=== PATIENT | female | born 1960 | race Caucasian/White ===

== ENCOUNTER → 2018-05-14 07:54 | Outpatient (CLI) | payer BC, SELFPAY ==
--- NOTE | 2018-05-14 08:06 | CA_ITS ---
PROCEDURE: 2-D M-mode and color Doppler study INDICATIONS FOR THE TEST: Chest pain COPD Heart Murmur Tobacco Smoking Palpitations+ Fatigue Syncope Edema Hypertension Diabetes Mellitus Rheumatic Fever SOB+DEJESUS+Obesity Hyperlipidemia Family History HD+ Additional History mv regurg. PATIENT INFORMATION HEIGHT: 64 WEIGHT:120 GENDER: Female B/P:90/60 2-D/M-MODE INTERPRETATION: 2-D MEASUREMENTS OBSERVED VALUES IN CMS Right Ventricular Dimension (RVDd) 1.5 Interventricular Septum (Thickness)(IVsd) 0.6 Left Ventricular Internal Dimensions(LVIDd) 4.2 Left Ventricular Posterior Wall (Thickness)(LVPWd) 0.6 Aortic Root 2.1 Aortic Cusp Separation 1.3 Left Atrial Dimensions (LAD) 2.6 2D 1. Left atrium is normal size, left ventricle is normal size, there is no concentric left ventricular hypertrophy, visually estimated ejection fraction of 55% with no regional wall motion abnormality. 2. The right atrium and right ventricle are normal size and contractility. 3. The aortic valve is minimally thickened and fibrosed. 4. The mitral and tricuspid valve are grossly normal. 5. The pulmonic valve is poorly visualized. 6. No significant pericardial effusion noted. DOPPLER INTERROGATION: Doppler interrogation of the aortic, mitral and tricuspid valvular presence of mild mitral and tricuspid regurgitation, tricuspid regurgitation jet velocity is insufficient for calculation of the right ventricular systolic pressure, diastolic parameters are within normal range. CONCLUSION: 1. Normal left ventricular size, preserved left ventricular systolic function, visually estimated ejection fraction 55% with no regional wall motion abnormality, diastolic parameters are within normal range. 2. Mild mitral and tricuspid regurgitation 3. No significant pericardial effusion noted.
== END ==
PROVIDERS: PCP Family Medicine; Visit Provider Physician Assistant
DX: R60.0 Localized edema (principal); I34.0 Nonrheumatic mitral (valve) insufficiency
CPT/HCPCS: 93306

== ENCOUNTER → 2018-10-29 08:36 | Outpatient (CLI) | payer BC, SELFPAY ==
[2018-10-29 09:25] LABS: Basophils % 1.8 % (0.1-2.0); Eosinophils # 0.1 K/mm3 (0.0-0.4); Eosinophils % 3.2 % (0.1-12.0); Hematocrit 40.4 % (37.0-47.0); Hemoglobin 13.3 g/dL (12.2-16.2); Lymphocytes # 0.6 K/mm3 (0.7-4.5); Lymphocytes % 34.7 % (10-50); Mean Corpuscular HGB Conc 32.9 g/dL (31.8-35.4); Mean Corpuscular Hemoglobin 31.3 pg (27.0-31.2); Mean Corpuscular Volume 95.1 fl (81-99); Mean Platelet Volume 7.8 fl (7.4-10.4); Monocytes # 0.1 K/mm3 (0.1-1.0); Monocytes % 5.2 % (1.7-9.3); Platelet Count 200 K/mm3 (142-424); Red Blood Count 4.24 M/mm3 (4.20-5.40); Red Cell Distribution Width 12.8 % (11.5-17.5); White Blood Count 1.8 K/mm3 (4.8-10.8)
[2018-10-29 11:47] LABS: Alanine Aminotransferase 38 U/L (12-78); Albumin Level 4.5 gm/dL (3.4-5.0); Albumin/Globulin Ratio 1.3 (1.1-1.8); Alkaline Phosphatase 75 U/L (46-116); Anion Gap 14.2 mEq/L (5-15); Aspartate Amino Transferase 17 U/L (15-37); Bilirubin,Total 0.6 mg/dL (0.2-1.0); Blood Urea Nitrogen 16 mg/dL (7-18); Calcium 9.7 mg/dL (8.5-10.1); Carbon Dioxide 30 mmol/L (21.0-32.0); Chloride 103 mmol/L (98-107); Chol/HDL Ratio 2.3 (1-3.5); Cholesterol 173 mg/dL (140-200); Creatinine,Serum 0.91 mg/dL (0.55-1.02); Estimated Glomerular Filt Rate 63 ml/min (>60); GFR (African American) 77 ML/MIN (>60); Globulin 3.4 gm/dl (1.3-3.2); Glucose 83 mg/dL (74-106); HDL Cholesterol 74 mg/dL (29-89); LDL Cholesterol 89 mg/dL (0-130); Potassium 4.2 mmoL/L (3.5-5.1); Sodium 143 mmol/L (136-145); Total Protein,Serum 7.9 gm/dL (6.4-8.2); Triglycerides 51 mg/dL (30-200); VLDL Cholesterol 10 mg/dL (0-40)
[2018-10-30 08:27] LABS: Iron 101 ug/dL (27-159); UIBC 228 ug/dL (131-425)
[2018-11-01 10:10] LABS: Folate >20.0 ng/mL (>3.0); Iron Saturation 31 % (15-55); Vitamin B12 376 pg/mL (232-1245)
== END ==
PROVIDERS: Visit Provider Nurse Practitioner Family
DX: D64.9 Anemia, unspecified (principal); K59.00 Constipation, unspecified; Z13.220 Encounter for screening for lipoid disorders
CPT/HCPCS: 36415; 80053; 80061; 82607; 82746; 83540; 83550; 85025

== ENCOUNTER → 2019-06-23 09:22 | Outpatient (POV) | payer BC, SELFPAY | PROVIDERS: Visit Provider Dermatology | DX: Z00.00 Encounter for general adult medical examination without abnormal findings (principal) ==

== ENCOUNTER → 2020-04-21 15:42 | Outpatient (CLI) | payer BC, SELFPAY ==
--- NOTE | 2020-04-21 15:46 | XR_ITS ---
PROCEDURE: XR LUMBAR SPINE MIN 4V CLINICAL INDICATION: LOW BACK PAIN COMPARISON: CR CXR CHEST(2 VIEWS-NOT PORTABLE) from 11/21/2016 FINDINGS: There is mild degenerative disc disease at T12-L1 L1-L2 and L2-L3 as well as L4-5 and L5-S1. There is mild wedging of L1. This is age indeterminate. Schmorl's nodes are present at L2 and L3. Mild dextroscoliosis Other findings:None. IMPRESSION: Degenerative changes. Mild wedging of L1 age indeterminate. No obvious retropulsion. MRI may provide further evaluation to determine the age of this finding if clinically desired. Dictated by: Ranulfo Bonds MD 04/21/2020 17:09 Ranulfo Bonds MD in [place] 04/21/2020 17:09
== END ==
PROVIDERS: PCP Family Medicine; Visit Provider Physician Assistant
DX: M54.5 Low back pain (principal)
CPT/HCPCS: 72110

== ENCOUNTER → 2020-04-26 07:47 | Outpatient (CLI) | payer BC, SELFPAY ==
--- NOTE | 2020-04-26 07:54 | MR_ITS ---
PROCEDURE: MR LUMBAR SPINE WO CON CLINICAL INDICATION: BILATERAL LOW BACK PAIN Fall -1wk ago with continual lbp with lt hip pain. Prior x-ray 04-21-20 COMPARISON: CR XR LUMBAR SPINE MIN 4V from 04/21/2020 TECHNIQUE: Standard multiplanar multiecho sequences are performed without contrast. 3-D MIP and myelographic images are also rendered and reviewed FINDINGS: There is normal alignment. The spinal cord ends at the L1 level. There is mild wedge compression changes of the superior endplate of L1 with loss of height anteriorly of approximately 20-25 percent. This does show decreased T1 and increased T2 and STIR signal consistent with acute mild wedge compression changes. No retropulsion is evident. No posterior element involvement. There is straightening of the lumbar lordosis which may be due to muscle spasm. L1-L2: Mild discogenic changes with desiccation centrally and a small Schmorl's node along the superior endplate of L2. L2-L3: Mild endplate Schmorl's nodes. L3-L4: Mild facet and ligamentum hypertrophy. L4-5: Mild facet and ligamentum hypertrophy with mild bilateral lateral recess and foraminal narrowing. L5-S1: Mild degenerative disc disease with bulging disc and a small broad-based central disc protrusion along with facet and ligamentum hypertrophy with mild bilateral lateral recess and foraminal narrowing with canal stenosis at this level at 10 mm. Tarlov cyst is present at the S2-S3 level. IMPRESSION: 1. Mild acute wedge compression changes of L1 as described above without retropulsion. 2. Multilevel lumbar spondylosis. Please see above for detailed description at each level 3. L5-S1: Mild degenerative disc disease with bulging disc and a small broad-based central disc protrusion along with facet and ligamentum hypertrophy with mild bilateral lateral recess and foraminal narrowing with canal stenosis at this level at 10 mm. Dictated by: Ranulfo Bonds MD 04/28/2020 08:34 Ranulfo Bonds MD in [place] 04/28/2020 08:34
== END ==
PROVIDERS: PCP Family Medicine; Visit Provider Physician Assistant
DX: M54.5 Low back pain (principal)
CPT/HCPCS: 72148; 76376

== ENCOUNTER → 2020-05-05 10:32 | Outpatient (CLI) | payer BC, SELFPAY ==
--- NOTE | 2020-05-05 10:34 | XR_ITS ---
PROCEDURE: XR DEXA AXIAL SKELETON CLINICAL HISTORY: POSTMENOPAUSAL COMPARISON: No exams were available for comparison FINDINGS: The right hip BMD is 0.602 with a T-score of -2.2. The left hip BMD is 0.619 with a T-score of -2.1. The lumbar spine BMD is 0.872 with a T-score of -1.6. IMPRESSION: This patient is considered osteopenic according to the World Health Organization criteria. Bone density is between 10 and 25 percent below young normal. Fracture risk is moderate. Treatment is advised. Based on these results a follow-up exam is recommended in 2 year. Dictated by: Ranulfo Bonds MD 05/06/2020 06:17 Ranulfo Bonds MD in [place] 05/06/2020 06:17
== END ==
PROVIDERS: PCP Family Medicine; Visit Provider Physician Assistant
DX: Z78.0 Asymptomatic menopausal state (principal)
CPT/HCPCS: 77080

== ENCOUNTER → 2020-05-05 14:23 | Outpatient (POV) | payer BC, SELFPAY ==
[2020-05-05 14:56] VITALS: BP 112/44; PULSE 71; RESP 18; TEMP 36.1; O2SAT 98; BMI 19.5
--- NOTE | 2020-05-05 16:30 | HMH.PMCON ---
Assessment and Plan (1) Compression fracture Current visit: Yes Status: Acute Category: Medical (2) Low back pain Current visit: Yes Status: Acute Category: Medical Code(s): M54.5 - Low back pain - Assessment and plan all Dx Assessment and Plan for all problems:: Patient is not interested in any type of surgical intervention or injective therapy at this time. We will give the patient a brace for conservative use and she will continue use of [id number]-[id number] Tylenol at this time. Patient has been advised if her pain does continue and or if it does worsen she can follow-up in the clinic for possible interventional therapies. She is in agreement. She has been instructed to contact clinic if she has any concerns before next appointment. The patient and I specifically discussed risk factors for COVID19. These risks include, but are not limited to age greater than 60, heart or lung disease, diabetes, immunosuppression, and travel. We also discussed NSAIDs may worsen COVID19 infection or symptoms. Patient should not use NSAIDs to treat COVID19 signs or symptoms. Patient was also informed that any type of corticosteroid of any form (oral or injection) will decrease the patient's immune system response and may increase the likelihood of COVID19 infection and symptoms[address] Dr. Stewart has reviewed this note and agrees with this plan of care. This note was dictated using voice recognition software and make contain errors or omissions. HPI - Data of Consult Patient: new to practice Consult date: 05/05/20 Requesting Physician: Cathi Louise APRN Primary Care Provider: Dick Solares MD - Consult Narrative Reason for consult: Low back pain History of present illness: Ms. Bagley is a 60 year old female presents today for consultation for low back pain. Patient reports that she was recently getting out of bed and slipped on her pajama bottoms causing her to fall. Patient says she immediately developed severe low back pain. She did follow-up with her primary care provider who conservatively advised the patient to take [id number] medications. She was advised if her pain continued to contact the clinic. She did call them in regards to her continued pain and was, subsequently, referred to our clinic. Patient states her pain is primarily in her low back area. She did undergo imaging of her lumbar spine which does show a T1-T2 fracture. She is not interested in any type of surgical intervention. She did discuss possible kyphoplasty, however, she is not interested. She also says she is not interested in injective therapy at this time. She says she is not having a great deal of pain. She says that Tylenol has alleviated most of the pain. Most of her pain is when she is awakening in the early mornings. He rates her pain a 6 out of 10 today. Patient does not have a brace or any other devices at this time for the compression fracture. CC: Cathi Louise APRN [facility] History I have reviewed the patient's past medical history: Yes Medical History: Reports:: Anxiety, Cancer, Hypertension, Palpitations Denies:: Diabetes Mellitus Type 1, Diabetes Mellitus Type 2, MRSA *Have you ever received a pneumonia vaccine?: Yes *Have you received a flu vaccine this season?: Yes Other Medical History: Reports: Arthritis Other Surgeries: Yes: Hysterectomy-Total, Other (tonsillectomy, hysterectomy, breast surgery) Amputation: No Fractures: No - *Social History Smoking Status: Never smoker Alcohol Intake: never *Occupational Status:: other Housing: house Household Members: other *Travel in the last 8 weeks: None - Psychiatric History Pschychiatric History:: Reports:: Anxiety Family Hx:: Unable to obtain Review of Systems - Review of Systems review of Systems General: No recent weight changes, no fever, no sleep disturbances Respiratory: No cough, no shortness of air, no recurring pulmonary infections Cardiovascular
== END ==
PROVIDERS: PCP Family Medicine; Visit Provider Clinical Nurse Specialist Family Health
DX: M48.56XS Collapsed vertebra, not elsewhere classified, lumbar region, sequela of fracture (principal)
CPT/HCPCS: 99202

== ENCOUNTER 2020-11-07 09:35 | Emergency (ER) | payer OTHER, SELFPAY ==
[2020-11-07] VITALS (13 sets, daily range): BP systolic 114–143; BP diastolic 51–83; PULSE 71–103; RESP 10–20; TEMP 36.7–36.9; O2SAT 98–100
--- NOTE | 2020-11-07 10:04 | HMH.EDUTC ---
[facility] Disposition Clinical Impression: Near syncope Disposition: Still a Patient Condition on Discharge: Good Referrals: Dick Solares MD [Primary Care Provider] - As needed Time of Disposition: 10:16 Medical Decision Making - Jared Inquiry Pt receiving controlled substance: No Jared was queried for this patient: No Vital Signs: 11/07/20 09:40 Temperature 98.4 F Temperature Source Oral Pulse Rate [Right Brachial] 74 Respiratory Rate 19 Blood Pressure [Right Arm] 134/51 L Blood Pressure Mean [Right Arm] 78 Blood Pressure Source [Right Arm] Automatic Cuff Blood Pressure Position [Right Arm] Sitting 02 Sat by Pulse Oximetry 98 Oxygen Delivery Method Room Air Medical Decision Narrative: Discussed symptoms with patient and she reported near syncope when she got up to go to the bathroom and had to sit down to keep from hitting the floor State that she has been having numbness/tingling feeling in her left arm but had COVID vaccine in this arm last week and not sure it may be causing this and her left leg felt shaky States that she is not sure but she just dont feel right appeared concerned Denies numbness in face States that she feels like she needs to poop but knows if she does she will go out. States that she is wanting to have her heart and blood checked. Discussed with patient and due to symptoms recommended transfer to the ED for further evaluation and testing and patient agreed, called ED and spoke with [facility] and patient was moved to room 5 [facility] HPI - General Stated complaint: dizzy heart rate increase Time Seen by Provider: 11/07/20 10:04 Mode of Arrival: Ambulatory Source of Information: Patient Limitations: No Limitations Description of Symptoms (Recalled from Triage Doc. by RN): PATIENT C/O DIZZINESS, SHAKY, AND NOT FEELING MYSELF SINCE THIS MORNING. ALSO C/O NUMBNESS AND TINGLING IN LEFT ARM HEENT Symptoms (Recalled from RN notes): Yes Resp Symptoms (Recalled from RN notes): No Skin Symptoms (Recalled from RN notes): No MS Symptoms (Recalled from RN notes): No Functional Status (Recalled from RN notes): WNL - History of Present Illness Provider Complaint: Patient states that she woke up this morning and felt fine States that she started walking towards her bathroom and felt like she was going to pass out and had to sit down quickly or she would have hit the floor States that got her up and she walked around some and felt better but she was having some numbness and tingling in her left arm, hand and fingers but she had COVID vaccine last week and not sure if it may be from that and her left leg felt shaky States that she just doesnt feel right - Related Data Home Medications Medication Instructions Recorded Confirmed Aspirin [Aspir 81] 81 mg PO DAILY 06/01/18 06/01/18 Metoprolol Tartrate [Lopressor 12.5 mg PO BID 06/01/18 06/01/18 25mg tablet] Sertraline HCl 25 mg PO DAILY 06/01/18 06/01/18 Allergies Allergy/AdvReac Type Severity Reaction Status Date / Time codeine [CODEINE] Allergy Unknown Verified 06/01/18 17:54 Penicillins [PENICILLINS] Allergy Unknown Verified 06/01/18 17:54 - Worker's Comp Is this a Worker's Comp case?: No [facility] History - Hepatitis A Screen Drug use history?: No High risk sexual behaviors?: No History of sexually transmitted infection?: No Currently employed?: No Childcare worker?: No Do you have indoor plumbing?: Yes Do you have electricity?: Yes Attestation statement:: This patient has been screened for Hepatitis A risk factors. I have reviewed the patient's past medical history: Yes Medical History: Reports:: Anxiety, Cancer, Hypertension, Palpitations Denies:: Diabetes Mellitus Type 1, Diabetes Mellitus Type 2, MRSA Other Medical History: Reports: Arthritis Other Surgeries: Yes: Hysterectomy-Total, Other (tonsillectomy, hysterectomy, breast surgery) Amputation: No Fractures: No - Social History Smoking
--- NOTE | 2020-11-07 10:10 | ECG_ITS ---
APPROVED REPORT Exam: Resting ECG HR:81 bpm ECG Measurements Heart Rate 81 AXES QRSd 72 QRS 62 QT 384 T 59 QTc 446 Conclusion Undetermined rhythm Otherwise normal ECG Electronically signed by : Jose Antonio Haq, 11/08/2020 19:39:50
--- NOTE | 2020-11-07 10:31 | XR_ITS ---
PROCEDURE: XR CHEST PORTABLE CLINICAL HISTORY: dizziness COMPARISON: CR CXR CHEST(2 VIEWS-NOT PORTABLE) from 07/15/2014 CR CXR CHEST(2 VIEWS-NOT PORTABLE) from 11/21/2016 CR CXR1 CHEST-PORTABLE from 06/12/2017 FINDINGS: The cardiomediastinal silhouette and pulmonary vascularity are within normal limits. There are bilateral breast implants resulting in increased density in the mid lung zones on both sides. This could obscure an underlying infiltrate. Lung apices and lung bases are clear. No acute bony abnormalities. IMPRESSION: Artifact from bilateral breast implants otherwise negative Dictated by: Ranulfo Bonds MD 11/07/2020 11:53 Ranulfo Bonds MD in [place] 11/07/2020 11:53
--- NOTE | 2020-11-07 10:41 | HMH.EDDIZZ ---
ED Disposition Clinical Impression: Near syncope Disposition: Home, Self-Care Condition on Discharge: Good Referrals: Dick Solares MD [Primary Care Provider] - As needed Time of Disposition: 13:20 - Critical Care Critical Care Time: No Attestation: On 11/07/20, the high probability of a clinically significant, sudden or life threatening deterioration of the following system(s) required my full and direct attention, intervention and personal management. The time I documented below is in addition to time spent performing reported procedures but includes the following listed in this critical care notation. Medical Decision Making - Medical Records Medical records reviewed: Yes: I reviewed the patient's medical records. - Jared Inquiry Pt receiving controlled substance: No Vital Signs: 11/07/20 09:40 11/07/20 09:50 11/07/20 10:09 Temperature 98.4 F 98.1 F Temperature Source Oral Oral Pulse Rate Pulse Rate [Orthostatic Lying Right Brachial] 78 Pulse Rate [Orthostatic Sitting Right Brachial] 83 Pulse Rate [Orthostatic Standing Right Brachial] 84 Pulse Rate [Right Brachial] 74 81 Respiratory Rate 19 19 Blood Pressure Blood Pressure [Orthostatic Lying Right Arm] 131/72 Blood Pressure [Orthostatic Sitting Right Arm] 123/78 Blood Pressure [Orthostatic Standing Right Arm] 143/60 H Blood Pressure [Right Arm] 134/51 L 136/64 Blood Pressure Mean Blood Pressure Mean [Right Arm] 78 88 Blood Pressure Source [Right Arm] Automatic Cuff Automatic Cuff Blood Pressure Position [Right Arm] Sitting Sitting 02 Sat by Pulse Oximetry 98 100 Oxygen Delivery Method Room Air Room Air 11/07/20 10:11 11/07/20 10:15 11/07/20 10:28 Temperature Temperature Source Pulse Rate 103 H 83 74 Pulse Rate [Orthostatic Lying Right Brachial] Pulse Rate [Orthostatic Sitting Right Brachial] Pulse Rate [Orthostatic Standing Right Brachial] Pulse Rate [Right Brachial] 76 Respiratory Rate 16 14 14 Blood Pressure 114/65 Blood Pressure [Orthostatic Lying Right Arm] Blood Pressure [Orthostatic Sitting Right Arm] Blood Pressure [Orthostatic Standing Right Arm] Blood Pressure [Right Arm] 114/65 Blood Pressure Mean 82 Blood Pressure Mean [Right Arm] 81 Blood Pressure Source [Right Arm] Blood Pressure Position [Right Arm] 02 Sat by Pulse Oximetry 100 100 100 Oxygen Delivery Method 11/07/20 10:30 11/07/20 10:45 11/07/20 11:00 Temperature Temperature Source Pulse Rate 79 Pulse Rate [Orthostatic Lying Right Brachial] Pulse Rate [Orthostatic Sitting Right Brachial] Pulse Rate [Orthostatic Standing Right Brachial] Pulse Rate [Right Brachial] 72 Respiratory Rate 12 12 11 L Blood Pressure 126/68 134/64 Blood Pressure [Orthostatic Lying Right Arm] Blood Pressure [Orthostatic Sitting Right Arm] Blood Pressure [Orthostatic Standing Right Arm] Blood Pressure [Right Arm] 126/68 Blood Pressure Mean 84 94 Blood Pressure Mean [Right Arm] 87 Blood Pressure Source [Right Arm] Automatic Cuff Blood Pressure Position [Right Arm] Sitting 02 Sat by Pulse Oximetry 100 100 100 Oxygen Delivery Method Room Air 11/07/20 11:08 11/07/20 11:15 Temperature Temperature Source Pulse Rate Pulse Rate [Orthostatic Lying Right Brachial] Pulse Rate [Orthostatic Sitting Right Brachial] Pulse Rate [Orthostatic Standing Right Brachial] Pulse Rate [Right Brachial] 71 Respiratory Rate 20 10 L Blood Pressure Blood Pressure [Orthostatic Lying Right Arm] Blood Pressure [Orthostatic Sitting Right Arm] Blood Pressure [Orthostatic Standing Right Arm] Blood Pressure [Right Arm] 134/64 Blood Pressure Mean Blood Pressure Mean [Right Arm] 87 Blood Pressure Source [Right Arm] Blood Pressure Position [Right Arm] 02 Sat by Pulse Oximetry 100 100 Oxygen Delivery Method - Lab Data Lab results reviewed: Yes: I reviewed the patient's
[2020-11-07 10:43] LABS: Basophils % 0.9 % (0.1-2.0); Eosinophils % 1.3 % (0.1-12.0); Hematocrit 37.6 % (37.0-47.0); Hemoglobin 12.4 g/dL (12.2-16.2); Lymphocytes # 0.8 K/mm3 (0.7-4.5); Lymphocytes % 34.2 % (10-50); Mean Corpuscular Volume 93.7 fl (81-99); Mean Platelet Volume 7.9 fl (7.4-10.4); Monocytes # 0.2 K/mm3 (0.1-1.0); Monocytes % 6.5 % (1.7-9.3); Neutrophils # 1.4 K/mm3 (1.8-7.8); Neutrophils % 57.1 % (37.0-80.0); Platelet Count 189 K/mm3 (142-424); Red Blood Count 4.01 M/mm3 (4.20-5.40); Red Cell Distribution Width 12.8 % (11.5-17.5); White Blood Count 2.4 K/mm3 (4.8-10.8)
[2020-11-07 10:50] LABS: Chloride 103 mmol/L (98-107)
[2020-11-07 10:51] LABS: Potassium 3.8 mmoL/L (3.5-5.1); Sodium 139 mmol/L (136-145)
[2020-11-07 10:53] LABS: Alanine Aminotransferase 21 U/L (12-78); Aspartate Amino Transferase 26 U/L (14-36); Blood Urea Nitrogen 9 mg/dl (7-17); Creatinine Clearance Estimated 64 mL/min (50-200); Estimated Glomerular Filt Rate 73 ml/min (>60); GFR (African American) 89 ML/MIN (>60)
[2020-11-07 10:54] LABS: Albumin Level 4.7 g/dl (3.5-5.0); Albumin/Globulin Ratio 1.4 (1.1-1.8); Alkaline Phosphatase 82 U/L (38-126); Anion Gap 11.8 mEq/L (5-15); Bilirubin,Total 0.4 mg/dl (0.2-1.3); Calcium 9.8 mg/dl (8.4-10.2); Carbon Dioxide 28 mmol/L (22.0-30.0); Globulin 3.3 g/dL (1.3-3.2); Glucose 87 mg/dl (74-100)
[2020-11-07 11:13] LABS: Troponin I < 0.01 ng/ml (0.00-0.034)
--- NOTE | 2020-11-07 11:55 | CT_ITS ---
PROCEDURE: CT HEAD/BRAIN WO CON CLINICAL INDICATION: dizziness COMPARISON: No exams were available for comparison TECHNIQUE: Axial images obtained. All CT scans at the facility use one or more dose reduction, viz: automated exposure control, ma/kV adjustment per patient size (including targeted exams where dose is matched to indication, i.e. head), or iterative reconstruction technique. FINDINGS: No midline shift, mass effect, intracranial hemorrhage, hydrocephalus, or extra-axial fluid collection is evident. The calvarium has an unremarkable appearance. No mastoid effusion. No sinus air-fluid level. IMPRESSION: No acute intracranial finding Dictated by: Ranulfo Bonds MD 11/07/2020 13:01 Ranulfo Bonds MD in [place] 11/07/2020 13:01
== END 2020-11-07 13:28 | disposition home or self-care (01) ==
LOC: UTC 09:43 → ER 10:04
PROVIDERS: Emergency Provider Family Medicine; PCP Family Medicine
DX: R55 Syncope and collapse (principal); R20.2 Paresthesia of skin; F41.9 Anxiety disorder, unspecified; I10 Essential (primary) hypertension; Z79.899 Other long term (current) drug therapy; Z90.710 Acquired absence of both cervix and uterus
CPT/HCPCS: 70450; 71045; 80053; 84484; 85025; 93005; 99283

== ENCOUNTER → 2020-11-14 13:33 | Outpatient (CLI) | payer OTHER, SELFPAY ==
--- NOTE | 2020-11-14 | CA_ITS ---
APPROVED REPORT Shipper Receiver: MARYBETH Laterality: Bilateral Study Quality: Good Indications: Near syncopal episode with dizziness Risk Factors hx-smoking Doppler Spectral Velocity Analysis ECA (R) 68.10/12.00 cm/s ECA (L) 65.50/14.10 cm/s dICA (R) 85.40/28.30 cm/s dICA (L) 94.30/38.20 cm/s Robi (R) 82.80/32.70 cm/s Robi (L) 92.00/36.70 cm/s pICA (R) 52.70/16.70 cm/s pICA (L) 61.00/21.80 cm/s dCCA (R) 88.60/24.10 cm/s dCCA (L) 81.40/21.40 cm/s pCCA (R) 101.60/25.70 cm/s pCCA (L) 123.40/29.10 cm/s Vert (R) 52.70/0.00 cm/s Vert (L) 95.40/18.30 cm/s ICA/CCA 0.96 ICA/CCA 1.16 Findings Duplex evaluation demonstrates antegrade flow of the bilateral Vertebral Arteries. Duplex evaluation demonstrates stenosis of the right proximal internal carotid artery in the range of 20-49% with PSV <140 cm/sec, EDV <100 cm/sec, and IC/CC Ratio <4.0. Duplex evaluation demonstrates stenosis of the left proximal internal carotid artery in the range of 20-49% with PSV <140 cm/sec, EDV <100 cm/sec, and IC/CC Ratio <4.0. Spectral broadening is present bilaterally. Conclusion Duplex evaluation demonstrates antegrade flow of the bilateral Vertebral Arteries. Duplex evaluation demonstrates stenosis of the right proximal internal carotid artery in the range of 20-49% with PSV <140 cm/sec, EDV <100 cm/sec, and IC/CC Ratio <4.0. Duplex evaluation demonstrates stenosis of the left proximal internal carotid artery in the range of 20-49% with PSV <140 cm/sec, EDV <100 cm/sec, and IC/CC Ratio <4.0. Electronically signed by : Ranulfo Bonds MD 11/14/2020 15:57:43
== END ==
PROVIDERS: PCP Family Medicine; Visit Provider Nurse Practitioner Family
DX: R55 Syncope and collapse (principal)
CPT/HCPCS: 93880

== ENCOUNTER → 2021-02-08 15:46 | Outpatient (CLI) | payer OTHER, SELFPAY ==
--- NOTE | 2021-02-08 15:49 | XR_ITS ---
PROCEDURE: XR KNEE RT 3V CLINICAL INDICATION: KNEE PAIN COMPARISON: No exams were available for comparison FINDINGS: Three views show [id number] degenerative change of medial joint compartment and patellofemoral joint. Degenerative change of the lateral joint compartment. Tiny joint effusion. No acute fracture or dislocation. IMPRESSION: Mild tricompartment degenerative change of the right knee joint and tiny joint effusion. No acute fracture or dislocation. Dictated by: Khalif Baum MD 02/08/2021 16:24 Khalif Baum MD in [facility] 02/08/2021 16:24
--- NOTE | 2021-02-08 16:15 | ECG_ITS ---
APPROVED REPORT Exam: Resting ECG HR:73 bpm ECG Measurements Heart Rate 73 AXES MA 142 P 70 QRSd 80 QRS 72 QT 400 T 70 QTc 440 Conclusion Normal sinus rhythm Normal ECG Electronically signed by : Jose Antonio Haq, 02/08/2021 17:49:10
== END ==
PROVIDERS: PCP Nurse Practitioner Family; Visit Provider Nurse Practitioner Family
DX: M25.562 Pain in left knee (principal)
CPT/HCPCS: 73562; 93005

== ENCOUNTER → 2021-04-13 14:35 | Outpatient (CLI) | payer OTHER, SELFPAY | PROVIDERS: PCP Family Medicine; Visit Provider Physician Assistant | DX: Z20.822 Contact with and (suspected) exposure to COVID-19 (principal) | CPT/HCPCS: U0003 ==

== ENCOUNTER → 2021-05-11 11:44 | Outpatient (CLI) | payer OTHER, SELFPAY | PROVIDERS: PCP Family Medicine; Visit Provider Nurse Practitioner | DX: Z20.822 Contact with and (suspected) exposure to COVID-19 (principal); U07.1 COVID-19 | CPT/HCPCS: C9803; U0003; U0005 ==

== ENCOUNTER → 2021-06-23 10:16 | Outpatient (CLI) | payer OTHER, SELFPAY ==
--- NOTE | 2021-06-23 10:19 | US_ITS ---
PROCEDURE: US CHEST CLINICAL INDICATION: CHEST WALL PAIN Patient has history of bilateral breast implants and right breast cancer. Currently complains of left lateral chest wall pain. COMPARISON: CR XR CHEST 2V from 06/23/2021 FINDINGS: The region of pain indicated by the patient corresponds to a left lateral rib. IMPRESSION: Region of pain indicated by patient corresponds to a left lateral rib. Left rib series radiograph or CT chest without contrast is recommended to evaluate for left rib fracture or osseous metastasis. Dictated by: Grecia Brewer MD 06/23/2021 11:44 Grecia Brewer MD in [place] 06/23/2021 11:44
--- NOTE | 2021-06-23 10:23 | XR_ITS ---
PROCEDURE: XR CHEST 2V CLINICAL HISTORY: CHEST WALL PAIN, left-sided History of bilateral breast reconstruction COMPARISON: CR CXR CHEST(2 VIEWS-NOT PORTABLE) from 11/21/2016 CR CXR1 CHEST-PORTABLE from 06/12/2017 CR XR CHEST PORTABLE from 11/07/2020 FINDINGS: The cardiomediastinal silhouette and pulmonary vascularity are within normal limits. Moderate emphysematous changes are noted with hyperexpansion lung samayoa and flattening of the hemidiaphragms. There is no infiltrate and there is no pleural fluid. The soft tissues in the chest wall appear normal bilaterally. There is faint bilateral symmetrical homogeneous density of the breast shadows. IMPRESSION: Mild to moderate COPD, no acute chest pathology noted Dictated by: Dr. Humberto Washington MD 06/23/2021 10:58 Dr. Humberto Washington MD in [facility] 06/23/2021 10:58
== END ==
PROVIDERS: PCP Nurse Practitioner Family; Visit Provider Nurse Practitioner Family
DX: R07.89 Other chest pain (principal)
CPT/HCPCS: 71046; 76604

== ENCOUNTER → 2021-07-11 07:55 | Outpatient (CLI) | payer OTHER, SELFPAY ==
--- NOTE | 2021-07-11 08:00 | CT_ITS ---
PROCEDURE: CT CHEST WO CON CLINICAL INDICATION: CHEST WALL PAIN COMPARISON: CR XR LUMBAR SPINE MIN 4V from 04/21/2020 MR MR LUMBAR SPINE WO CON from 04/26/2020 CR XR CHEST 2V from 06/23/2021 TECHNIQUE: Axial images obtained with sagittal and coronal reformats. All CT scans at the facility use one or more dose reduction, viz: automated exposure control, ma/kV adjustment per patient size (including targeted exams where dose is matched to indication, i.e. head), or iterative reconstruction technique. FINDINGS: HEART AND MEDIASTINAL STRUCTURES: Unremarkable. LUNGS AND PLEURAL SPACES: Minimal scarring or atelectatic change in the right middle lobe inferiorly. There are several small fissural nodules along the left major fissure inferiorly benign-appearing. BONY STRUCTURES: There is mild wedge compression changes which appears chronic UPPER ABDOMEN: Unremarkable. ADDITIONAL FINDINGS: Status post bilateral subpectoral breast implants IMPRESSION: No acute finding Dictated by: Ranulfo Bonds MD 07/12/2021 16:36 Ranulfo Bonds MD in [facility] 07/12/2021 16:36
== END ==
PROVIDERS: PCP Nurse Practitioner Family; Visit Provider Nurse Practitioner Family
DX: R07.89 Other chest pain (principal)
CPT/HCPCS: 71250

== ENCOUNTER → 2021-08-23 09:42 | Outpatient (CLI) | payer OTHER, SELFPAY | PROVIDERS: Visit Provider Nurse Practitioner | DX: Z20.822 Contact with and (suspected) exposure to COVID-19 (principal) | CPT/HCPCS: C9803; U0003; U0005 ==

== ENCOUNTER → 2021-10-30 11:41 | Outpatient (CLI) | payer OTHER, SELFPAY ==
--- NOTE | 2021-10-30 11:50 | XR_ITS ---
FINAL REPORT CLINICAL HISTORY: SOB, chest pain COMPARISON: June 23, 2021 FINDINGS: Two views of the chest were obtained. The heart size and pulmonary vascularity are within normal limits. The mediastinum is normal. No acute pulmonary abnormality is identified. There is no pneumothorax. The bony thorax is intact. IMPRESSION: No active cardiopulmonary disease. Reviewed, Interpreted and Dictated by Skyler Del Valle III, MD Transcribed by Chetan Almaraz Authenticated by Skyler Del Valle III, MD on 10/30/2021 01:26:[address] [facility]
== END ==
PROVIDERS: PCP Nurse Practitioner Family; Visit Provider Nurse Practitioner Family
DX: R06.02 Shortness of breath (principal); R07.9 Chest pain, unspecified
CPT/HCPCS: 71046

== ENCOUNTER → 2021-10-31 09:58 | Outpatient (CLI) | payer OTHER, SELFPAY ==
--- NOTE | 2021-10-31 | ECG_ITS ---
APPROVED REPORT Exam: Resting ECG HR:59 bpm ECG Measurements Heart Rate 59 AXES WV 156 P 76 QRSd 78 QRS 53 QT 410 T 68 QTc 409 Conclusion SINUS BRADYCARDIA BORDERLINE ECG UNCONFIRMED REPORT Electronically signed by : Jose Antonio Haq MD 11/01/2021 17:51:03
[2021-10-31 10:24] LABS: Basophils # 0.1 K/mm3 (0-0.2); Basophils % 3.6 % (0.1-2.0); Eosinophils # 0.1 K/mm3 (0.0-0.4); Eosinophils % 2.7 % (0.1-12.0); Hematocrit 43.5 % (37.0-47.0); Hemoglobin 13.7 g/dL (12.2-16.2); Lymphocytes # 0.7 K/mm3 (0.7-4.5); Mean Corpuscular HGB Conc 31.4 g/dL (31.8-35.4); Mean Corpuscular Hemoglobin 31.4 pg (27.0-31.2); Mean Corpuscular Volume 99.8 fl (81-99); Mean Platelet Volume 8.3 fl (7.4-10.4); Monocytes # 0.2 K/mm3 (0.1-1.0); Monocytes % 7.4 % (1.7-9.3); Neutrophils # 1.3 K/mm3 (1.8-7.8); Neutrophils % 57.4 % (37.0-80.0); Platelet Count 227 K/mm3 (142-424); Red Blood Count 4.36 M/mm3 (4.20-5.40); Red Cell Distribution Width 13.5 % (11.5-17.5); White Blood Count 2.3 K/mm3 (4.8-10.8)
[2021-10-31 11:11] LABS: Alanine Aminotransferase 16 U/L (12-78); Albumin Level 4.8 g/dl (3.5-5.0); Albumin/Globulin Ratio 1.7 (1.1-1.8); Alkaline Phosphatase 84 U/L (38-126); Anion Gap 11.6 mEq/L (5-15); Aspartate Amino Transferase 23 U/L (14-36); Bilirubin,Total 0.6 mg/dl (0.2-1.3); Blood Urea Nitrogen 13 mg/dl (7-17); Calcium 9.7 mg/dl (8.4-10.2); Carbon Dioxide 31 mmol/L (22.0-30.0); Chloride 101 mmol/L (98-107); Creatine Kinase 38 U/L (30-135); Estimated Glomerular Filt Rate 85 ml/min (>60); GFR (African American) 103 ML/MIN (>60); Globulin 2.8 g/dL (1.3-3.2); Glucose 85 mg/dl (74-100); Potassium 4.6 mmoL/L (3.5-5.1); Sodium 139 mmol/L (136-145); Total Protein,Serum 7.6 g/dl (6.3-8.2)
[2021-10-31 11:22] LABS: CKMB Relative Index 1.1 U/L (0-4.0); Creatine Kinase MB 0.4 ng/ml (0.0-2.03)
[2021-10-31 11:23] LABS: Troponin I < 0.01 ng/ml (0.00-0.034)
[2021-10-31 11:25] LABS: Free T4 (Free Thyroxine) 0.97 ng/dl (0.78-2.19)
[2021-10-31 11:40] LABS: Thyroid Stimulating Hormone 4.86 uIU/mL (0.465-4.68)
== END ==
PROVIDERS: PCP Family Medicine; Visit Provider Nurse Practitioner Family
DX: R06.02 Shortness of breath (principal); R07.9 Chest pain, unspecified
CPT/HCPCS: 36415; 80053; 82550; 82553; 84439; 84443; 84484; 85025; 93005

== ENCOUNTER → 2021-11-06 08:43 | Outpatient (CLI) | payer OTHER, SELFPAY ==
--- NOTE | 2021-11-06 08:48 | XR_ITS ---
FINAL REPORT TECHNIQUE: Bone densitometry calculations of the lumbar spine and left hip were obtained. CLINICAL HISTORY: . post menopausal screening FINDINGS: Using L1-4, the bone mineral density of the spine is 0.864 g/cm2, corresponding to T-score of -1.7. Using the right hip, the bone mineral density of the femoral neck is 0.571 g/cm2, corresponding to a T-score of -2.5. IMPRESSION: Osteoporosis: Lowest T-score is at or below -2.5. This patient's T-score meets the World Health Organization criteria for osteoporosis. Reviewed, Interpreted and Dictated by Skyler Del Valle III, MD Transcribed by Herminia Lovett Authenticated by Skyler Del Valle III, MD on 11/06/2021 11:25:16 AM [facility]
--- NOTE | 2021-11-06 09:31 | CA_ITS ---
APPROVED REPORT EXAM: Comprehensive 2D, Doppler, and color-flow Echocardiogram Alley Cleaner: Katia Aldridge RVT Ht: 5 ft 5 in Wt: 120lbs BSA: 1.59 BP: 100/67 mmHg Indications: SOA,PALPS,BREAST IMPLANTS S/P JUNIOR MASECTOMY 2D Dimensions LVOT 2.25 cm (M/F) 1.5-2.5 LA Volume 16.60 mL LA Volume Index 10.44 mL/m2 (M/F) 16-34 M-Mode Dimensions RVDd 2.03 cm (0.9-2.6) LA Diam 2.84 cm (1.9-4.0) LVDd 3.40 cm (3.5-5.7) Ao Diam 2.29 cm (2.0-3.7) LVDs 2.31 cm (3.5-5.7) IVSd 0.87 cm (0.6-1.1) PWd 0.81 cm (0.6-1.1) EF (Teich) 61.40% FS 32.10% EDV (Teich) 47.40 mL TAPSE 2.87 (<1.7) ESV (Teich) 18.30 mL LV Diastology E Decel Time 217.00 (160-240 msec) E/A Ratio 1.2 MED E' 9.60 (< 7 cm/sec) E'/MED E' Ratio 7.82 (>14) LAT E' 11.40 (<10 cm/sec) E/LAT E' Ratio 6.59 (>14) Aortic Valve AO Peak GR. 4.70 mmHg Mitral Valve MV E Max Bulmaro. 75.00 (40-130 cm/s) MV A Velocity 61.00 (40-130 cm/s) E/A Ratio 1.23 MV Decel. Time 217.00 (160-240 ms) MV PHT 63.00 ms Pulmonary Valve PV Peak Velocity 56.00 (50-150 cm/s) Tricuspid Valve TR P. Velocity 230.00 cm/s RAP Estimate 10.00 mmHg RVSP 31.20 mmHg Left Ventricle Left atrium is normal size, left ventricle is normal size, there is no concentric left ventricular hypertrophy, visually estimated ejection fraction 55% with no obvious regional wall motion abnormality, diastolic parameters are within normal range. Right Ventricle Right atrium and right ventricle are normal size and contractility. Aortic Valve Is minimally thickened and fibrosed, there is no aortic stenosis or aortic insufficiency. Mitral Valve Mitral valve leaflets are minimally thickened, there is mild mitral regurgitation. Tricuspid Valve Tricuspid grossly normal, there is mild tricuspid regurgitation, tricuspid regurgitation jet velocity is inadequate for calculation of the right ventricular systolic pressure. Pulmonic Valve Pulmonic valve is poorly visualized. Great Vessels Aortic root is normal size. Inferior vena cava is normal size with normal inspiratory collapse. Pericardium No significant pericardial effusion. Conclusion 1. Normal left ventricular size, preserved left ventricular systolic function visually estimated ejection fraction 55% with no regional wall motion abnormality, diastolic parameters are within normal range. 2. Mild mitral and tricuspid regurgitation. 3. No significant pericardial effusion- 4. Inferior vena cava normal size with normal inspiratory collapse. Electronically signed by : Alejo Jimenes MD 11/06/2021 19:45:21
== END ==
PROVIDERS: PCP Family Medicine; Visit Provider Nurse Practitioner Family
DX: Z13.820 Encounter for screening for osteoporosis (principal); Z78.0 Asymptomatic menopausal state; R06.02 Shortness of breath
CPT/HCPCS: 77080; 93306

== ENCOUNTER 2021-12-30 07:21 | Emergency (ER) | payer OTHER, SELFPAY ==
--- NOTE | 2021-12-30 07:21 | PC.NURSE ---
pt laying on bed, nurse is bedside, EKG performed, vital signs obtained and hooked up to cardiac monitoring.
--- NOTE | 2021-12-30 07:21 | ECG_ITS ---
APPROVED REPORT Exam: Resting ECG HR:69 bpm ECG Measurements Heart Rate 69 AXES NM 157 P 81 QRSd 77 QRS 60 QT 373 T 71 QTc 393 Conclusion SINUS RHYTHM NORMAL ECG UNCONFIRMED REPORT Electronically signed by : Jose Antonio Haq MD 12/31/2021 08:22:23
[2021-12-30 07:26] VITALS: BP 128/73; PULSE 69; RESP 18; TEMP 36.7; O2SAT 98
--- NOTE | 2021-12-30 07:38 | XR_ITS ---
PROCEDURE INFORMATION: Exam: XR Chest Exam date and time: 12/30/2021 7:41 AM Age: 61 years old Clinical indication: Pain; Angina pectoris; Additional info: Chest pain/ non smoker TECHNIQUE: Imaging protocol: XR of the chest. Views: 2 views. COMPARISON: CR XR CHEST 2V 10/30/2021 12:16 PM FINDINGS: Lungs: Mild hyperinflation. No focal consolidation. Pleural spaces: Unremarkable. No pleural effusion. No pneumothorax. Heart/Mediastinum: Unremarkable. No cardiomegaly. Bones/joints: Stable mild anterior wedging of a vertebral body near the thoracolumbar junction. IMPRESSION: No acute process.
--- NOTE | 2021-12-30 07:40 | PC.NURSE ---
Notified rad of CXR
--- NOTE | 2021-12-30 07:47 | PC.NURSE ---
pt to radiology
[2021-12-30 07:48] LABS: Basophils # 0.1 K/mm3 (0-0.2); Basophils % 2.1 % (0.1-2.0); Eosinophils # 0.1 K/mm3 (0.0-0.4); Eosinophils % 2.7 % (0.1-12.0); Hematocrit 41.4 % (37.0-47.0); Hemoglobin 13.7 g/dL (12.2-16.2); Lymphocytes % 43.5 % (10-50); Mean Corpuscular HGB Conc 33.1 g/dL (31.8-35.4); Mean Corpuscular Hemoglobin 31.7 pg (27.0-31.2); Mean Corpuscular Volume 95.8 fl (81-99); Mean Platelet Volume 8.7 fl (7.4-10.4); Monocytes # 0.1 K/mm3 (0.1-1.0); Monocytes % 6.3 % (1.7-9.3); Neutrophils % 45.4 % (37.0-80.0); Platelet Count 226 K/mm3 (142-424); Red Blood Count 4.32 M/mm3 (4.20-5.40); Red Cell Distribution Width 13.2 % (11.5-17.5); White Blood Count 2.2 K/mm3 (4.8-10.8)
[2021-12-30 07:54] LABS: Anion Gap 11.5 mEq/L (5-15); Blood Urea Nitrogen 15 mg/dl (7-17); Calcium 9.9 mg/dl (8.4-10.2); Carbon Dioxide 30 mmol/L (22.0-30.0); Chloride 101 mmol/L (98-107); Creatinine Clearance Estimated 51 mL/min (50-200); Estimated Glomerular Filt Rate 64 ml/min (>60); GFR (African American) 77 ML/MIN (>60); Glucose 88 mg/dl (74-100); Potassium 3.5 mmoL/L (3.5-5.1); Sodium 139 mmol/L (136-145)
--- NOTE | 2021-12-30 07:54 | PC.WOUNDNOTE ---
pt is back from radiology, hooked back up to vital signs and cardiac monitoring. Call light is within reach.
--- NOTE | 2021-12-30 07:58 | HMH.EDCP ---
ED Disposition Clinical Impression: Acute gastritis Qualifiers: Gastritis type: unspecified gastritis Gastritis bleeding: without bleeding Qualified Code(s): K29.00 - Acute gastritis without bleeding Chest pain Qualifiers: Chest pain type: unspecified Qualified Code(s): R07.9 - Chest pain, unspecified Disposition: Home, Self-Care Condition on Discharge: Fair Instructions: DI for Atypical Chest Pain Additional Instructions: Please return to the emergency department immediately if you feel worse in any way. I strongly suggest that you follow-up with your primary care physician in the next few days. Work-up today in the emergency department not reveal any evidence for life-threatening or dangerous causes for your discomfort. Referrals: Provider,Referral, [Primary Care Provider] - - Critical Care Critical Care Time: No Attestation: On , the high probability of a clinically significant, sudden or life threatening deterioration of the following system(s) required my full and direct attention, intervention and personal management. The time I documented below is in addition to time spent performing reported procedures but includes the following listed in this critical care notation. Medical Decision Making - Medical Records Medical records reviewed: Yes: I reviewed the patient's medical records. - Jared Inquiry Pt receiving controlled substance: No Vital Signs: 12/30/21 07:26 12/30/21 08:00 Temperature 98.1 F Temperature Source Oral Pulse Rate 63 Pulse Rate [Right Radial] 69 Respiratory Rate 18 Blood Pressure 130/62 Blood Pressure [Right Arm] 128/73 Blood Pressure Mean [Right Arm] 91 Blood Pressure Source [Right Arm] Automatic Cuff Blood Pressure Position [Right Arm] Sitting 02 Sat by Pulse Oximetry 98 100 Oxygen Delivery Method Room Air Room Air - Lab Data Lab Results 12/30/21 07:30: WBC 2.2 L, RBC 4.32, Hgb 13.7, Hct 41.4, MCV 95.8, MCH 31.7 H, MCHC 33.1, RDW 13.2, Plt Count 226, MPV 8.7, Neut % (Auto) 45.4, Lymph % (Auto) 43.5, Kidder % (Auto) 6.3, Eos % (Auto) 2.7, Baso % (Auto) 2.1 H, Neut # (Auto) 1.0 L, Lymph # (Auto) 1.0, Kidder # (Auto) 0.1, Eos # (Auto) 0.1, Baso # (Auto) 0.1 12/30/21 07:30: Sodium 139, Potassium 3.5, Chloride 101, Carbon Dioxide 30, Anion Gap 11.5, BUN 15, Creatinine 0.90, Estimated Creat Clear 51, Estimated GFR 64, Est GFR ( Amer) 77, Glucose 88, Calcium 9.9, Troponin I < 0.01 Result diagrams: 12/30/21 07:30 12/30/21 07:30 Orders (Tests/Meds): ED MEDICATIONS Generic Name Dose Route Start Last Admin Trade Name Freq PRN Reason Stop Dose Admin Sodium Chloride 10 ml 12/30/21 07:38 Sodium Chloride 0.9% 10ml Flush Syringe IV 01/29/22 07:37 NEEDED PRN Maintain IV Site Discontinued Medications Generic Name Dose Route Start Last Admin Trade Name Freq PRN Reason Stop Dose Admin Aspirin 243 mg 12/30/21 07:38 12/30/21 07:41 Aspirin 81mg Chewable Tablet PO 12/30/21 07:39 243 mg ONCE ONE Administration Belladonna Alkaloids 60 ml 12/30/21 08:16 12/30/21 08:34 Gi Cocktail 60ml Udc PO 12/30/21 08:17 60 ml ONCE ONE Administration ORDERS Category Date Time Status Troponin I Q3H Lab 12/30/21 10:45 Ordered Troponin I Q3H Lab 12/30/21 13:45 Ordered - Radiology Data #1 Image(s): Chest Image Reviewed: Yes I reviewed the patient's radiology results, Yes I reviewed the patient's radiology image, Yes I have reviewed radiologist's interpretation Preliminary Findings: Normal/NAD - ECG Data Tracing #1 I reviewed this ECG and interpreted as documented below: The patient is EKG was done at 7:22 AM. It shows a normal sinus rhythm with a ventricular rate of 69 bpm. There are no ischemic changes. There is no peaked T waves. The rhythm is normal. There is no acute disease. Normal Sinus Rhythm: Yes - GABBY Score for Non-Stemi Age of Patient: 60-69 years old Heart Rate: 50-69 bpm Systolic Blood Pre
[2021-12-30 08:00] VITALS: BP 130/62; PULSE 63; O2SAT 100
--- NOTE | 2021-12-30 08:00 | PC.NURSE ---
Dr. Leavitt bedside with patient at this time.
[2021-12-30 08:14] LABS: Troponin I < 0.01 ng/ml (0.00-0.034)
[2021-12-30 09:08] VITALS: BP 105/56; PULSE 57; RESP 16; TEMP 36.7; O2SAT 99
== END 2021-12-30 09:17 | disposition home or self-care (01) ==
PROVIDERS: Emergency Provider Emergency Medicine
DX: K29.00 Acute gastritis without bleeding (principal); R07.9 Chest pain, unspecified; F41.9 Anxiety disorder, unspecified; I10 Essential (primary) hypertension; R00.2 Palpitations; M19.90 Unspecified osteoarthritis, unspecified site; Z88.0 Allergy status to penicillin; Z88.6 Allergy status to analgesic agent
CPT/HCPCS: 71046; 80048; 84484; 85025; 93005; 99284

== ENCOUNTER → 2023-02-25 15:01 | Outpatient (CLI) | payer OTHER, SELFPAY ==
--- NOTE | 2023-02-25 15:09 | XR_ITS ---
FINAL REPORT CLINICAL HISTORY: LT THUMB PAIN FINDINGS: Three views left thumb: Three views of the left thumb fail to reveal any evidence of fracture or dislocation. No soft tissue swelling is identified. No radiopaque foreign bodies are seen. IMPRESSION: Unremarkable left thumb. Reviewed, Interpreted and Dictated by Skyler Del Valle III, MD Transcribed by Maisha Rangel Authenticated and [facility]
== END ==
PROVIDERS: PCP Family Medicine; Visit Provider Family Medicine
DX: M79.645 Pain in left finger(s) (principal)
CPT/HCPCS: 73140

== ENCOUNTER 2023-04-07 19:38 | Emergency (ER) | payer OTHER, SELFPAY ==
[2023-04-07 19:39] VITALS: BP 159/91; PULSE 78; RESP 18; TEMP 36.8; O2SAT 99; BMI 19.4
--- NOTE | 2023-04-07 20:01 | HMH.EDGENADL ---
Discharge Plan Disposition Patient Disposition: Home, Self-Care Condition: Good Prescriptions Prescriptions: No Action aspirin [Aspir-81] 81 MG tablet,delayed release (DR/EC) 81 mg PO DAILY sertraline 25 MG tablet 25 mg PO DAILY metoprolol tartrate 25 MG tablet 12.5 mg PO BID Referrals Follow up/Referrals: Dick Solares MD [Primary Care Provider] - See instructions Clinical Impressions Clinical Impression: Cramp in muscle, Varicose veins of both legs with edema Discharge ED Provider: Vick Vital Adult HPI General Chief complaint: PAIN Stated complaint: Right Leg Pain Time Seen by Provider: 04/07/23 20:01 Mode of Arrival: Ambulatory Source of Information: Patient Limitations: No Limitations Description of Symptoms (Recalled from ER Triage Doc. by RN): Pt presents with pain in her right lower leg near a varicose vein which she has hx of surgery on 12 yrs ago. States she keeps getting sharp pains in her leg that are becoming more frequent and concerned for blood clot. No warmth or redness in area, good pedal pulses. History of Present Illness HPI narrative: Patient presents for evaluation of intermittent cramping pain over lateral aspect of right leg, acute in onset starting today, has not had similar symptoms before, no previous therapies, pain is sharp and nonradiating. Sometimes located over known varicose veins of superficial veins of anterior aspect of right leg, sometimes more laterally over musculature of right leg. No associated chest pain or shortness of breath or palpitations or personal or family history of DVT or PE. No recent travel, no estrogen usage. Patient usually wears compression stockings but has not recently with hot weather. Related Data Home Medications Medication Instructions Recorded Confirmed aspirin 81 mg tablet,delayed 81 mg PO DAILY HEART HEALTH 06/01/18 04/07/23 release (Aspir-) metoprolol tartrate 25 mg tablet 12.5 mg PO BID PALPITATIONS 06/01/18 04/07/23 sertraline 25 mg tablet 25 mg PO DAILY Depression 06/01/18 04/07/23 Allergies Allergy/AdvReac Type Severity Reaction Status Date / Time codeine [CODEINE] Allergy Unknown Verified 06/01/18 17:54 Penicillins [PENICILLINS] Allergy Unknown Verified 06/01/18 17:54 [facility] Disclaimer: The information contained in this section may have been updated after the patient was seen, as this information can be updated by other users. Social History Smoking Status: Never smoker alcohol intake: never current occupational status: other Travel in the last 8 weeks: None household members: other housing: house current occupational exposures/hazards: No ROS Obtained: Yes Systems reviewed as appropriate & no additional complaints except as documented Physical Exam General General appearance: alert and in no apparent distress Head Head exam: atraumatic and normocephalic Eye Eye exam: Present normal appearance Neck Neck exam: Present normal inspection Chest Chest inspection: Present normal inspection and symmetric chest wall rise Respiratory Respiratory exam: Present normal lung sounds bilaterally; Absent respiratory distress Cardiovascular Cardiovascular exam: Present regular rate and normal rhythm Abdominal Exam Abdominal exam: Present soft Extremities Exam Extremities exam: Present other (Tenderness to palpation over lateral aspect of right leg, no unilateral leg pain or leg swelling, varicose veins which are compressible, no overlying skin changes or erythema or edema) Neurological Exam Neurological exam: Present alert and oriented X3 Psychiatric Psychiatric exam: Present normal affect and normal mood Skin Skin exam: Present warm and dry Medical Decision Making Medical Records Medical records reviewed: Yes I reviewed the patient's medical records. Jared Inquiry Pt receiving controlled substance: No Vital Signs: 04/07/23 19:39 04/07/23 21:17 [place]
[2023-04-07 21:17] VITALS: BP 159/91; PULSE 89; RESP 19; TEMP 36.7; O2SAT 99
--- NOTE | 2023-04-07 21:20 | PC.NURSE ---
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 spoke with Dr. Vital whom said he would follow point of care.
== END 2023-04-07 21:19 | disposition home or self-care (01) ==
PROVIDERS: Emergency Provider Emergency Medicine; PCP Family Medicine
DX: I83.813 Varicose veins of bilateral lower extremities with pain (principal)
CPT/HCPCS: 99284

== ENCOUNTER → 2023-04-08 12:36 | Outpatient (CLI) | payer OTHER, SELFPAY ==
--- NOTE | 2023-04-08 12:42 | CA_ITS ---
FINAL REPORT TECHNIQUE: Multiple transverse and longitudinal images were performed of the right femoral-popliteal deep venous system with augmentation and compression maneuvers. CLINICAL HISTORY: Right lower extremity varicose vein cluster, pain and edema COMPARISON: None FINDINGS: Right lower extremity duplex ultrasound demonstrates normal flow in the deep venous system. There is no abnormal echogenicity to suggest thrombus. There is normal compression and augmentation. IMPRESSION: No evidence of right DVT. Reviewed, Interpreted and Dictated by Skyler Del Valle III, MD Transcribed by Lisandra Akdins Authenticated and [facility]
== END ==
PROVIDERS: PCP Nurse Practitioner Family; Visit Provider Nurse Practitioner Family
DX: M79.604 Pain in right leg (principal)
CPT/HCPCS: 93971

== ENCOUNTER 2023-04-15 08:10 | Emergency (ER) | payer OTHER, SELFPAY ==
[2023-04-15 08:11] VITALS: BP 89/36; PULSE 66; RESP 18; TEMP 36.7; O2SAT 100; BMI 19.4
--- NOTE | 2023-04-15 08:13 | XR_ITS ---
FINAL REPORT CLINICAL HISTORY: Left elbow pain COMPARISON: None FINDINGS: LEFT ELBOW 3 views were obtained. There is no acute fracture or dislocation. There is no joint effusion. The joint spaces are intact. There is mild soft tissue swelling posterior to the olecranon. IMPRESSION: Soft tissue swelling without acute process. Reviewed, Interpreted and Dictated by Seun Payne MD Transcribed by Lisandra Adkins Authenticated and [facility]
--- NOTE | 2023-04-15 08:13 | XR_ITS ---
FINAL REPORT CLINICAL HISTORY: Left forearm pain COMPARISON: None FINDINGS: 2 views of the left forearm were obtained. There is no acute fracture or dislocation. The joints are intact. There are no soft tissue abnormalities. IMPRESSION: No acute process. Reviewed, Interpreted and Dictated by Seun Payne MD Transcribed by Lisandra Adkins Authenticated and . [facility]
--- NOTE | 2023-04-15 08:16 | EXP.UTC ---
Discharge Plan Disposition Patient Disposition: Home, Self-Care Condition: Good Prescriptions Prescriptions: No Action aspirin [Aspir-81] 81 MG tablet,delayed release (DR/EC) 81 mg PO DAILY sertraline 25 MG tablet 25 mg PO DAILY metoprolol tartrate 25 MG tablet 12.5 mg PO BID Referrals Follow up/Referrals: Aquilino Rosario DO [Staff Physician] - See instructions Precious Lopez APRN [Primary Care Provider] - See instructions Activity Restrictions/Add. Instructions Additional Instructions/Restrictions: Rest the extremity, apply ice for 15 minutes as tolerated three or four times per day, Wear the carol ann wrap for compression, Elevate the extremity as tolerated while you are resting. Take ibuprofen for pain if you can take this. If not, then take tylenol. Follow up with Dr. Rosario (orthopedics). I put in a referral but you need to call his office and schedule an appointment. Follow up with your regular doctor. GO TO THE ER FOR ANY WORSENING SYMPTOMS Clinical Impressions Clinical Impression: Contusion of elbow, left, Contusion of forearm, left Instructions Patient Instructions: Contusion, DI for Contusion, How to Apply an Elastic Wrap on Elbow Discharge ED Provider: Khalif Orr [facility] General Stated complaint: [id number] left arm injury, home Time Seen by Provider: 04/15/23 08:16 History of Present Illness Provider Complaint: She states that she fell this morning and came down on her left arm. Since then she has had left elbow and forearm pain. She denies any other injury. Related Data Home Medications Medication Instructions Recorded Confirmed aspirin 81 mg tablet,delayed 81 mg PO DAILY HEART HEALTH 06/01/18 04/07/23 release (Aspir-) metoprolol tartrate 25 mg tablet 12.5 mg PO BID PALPITATIONS 06/01/18 04/07/23 sertraline 25 mg tablet 25 mg PO DAILY Depression 06/01/18 04/07/23 Allergies Allergy/AdvReac Type Severity Reaction Status Date / Time codeine [CODEINE] Allergy Unknown Verified 06/01/18 17:54 Penicillins [PENICILLINS] Allergy Unknown Verified 06/01/18 17:54 [facility] Disclaimer: The information contained in this section may have been updated after the patient was seen, as this information can be updated by other users. Social History Smoking Status: Never smoker alcohol intake: never current occupational status: other Travel in the last 8 weeks: None household members: other housing: house current occupational exposures/hazards: No ROS Obtained: Yes All systems reviewed & no additional complaints except as documented Constitutional Constitutional: Denies chills and Denies fever(s) Eyes Eyes: Denies eye discharge ENT Ears, Nose, Mouth, and Throat: Denies dizziness, Denies otalgia and Denies sore throat Cardiovascular Cardiovascular: Denies chest pain Respiratory Respiratory: Denies shortness of breath, Denies chest congestion, Denies cough, Denies stridor and Denies wheezing Gastrointestinal Gastrointestingal: Denies nausea or vomiting Musculoskeletal Musculoskeletal: Reports as per HPI Integumentary/Breasts Skin/Breast: Denies rash Neurologic Neurologic: Denies dizziness and Denies paresthesias Allergic/Immunologic Allergic/Immunologic: Denies wheezing Physical Exam General General appearance: alert and in no apparent distress Head Head exam: atraumatic, normocephalic and normal inspection Eye Eye exam: Present normal appearance, PERRL and EOMI ENT ENT exam: Present normal exam, normal oropharynx, mucous membranes moist, TM's normal bilaterally and normal external ear exam Neck Neck exam: Present normal inspection, full ROM and trachea midline; Absent meningismus or lymphadenopathy Chest Chest inspection: Present normal inspection and symmetric chest wall rise; Absent tenderness Respiratory Respiratory exam: Present normal lung sounds bilaterally; Absent respiratory distre
[2023-04-15 09:15] VITALS: BP 143/87; PULSE 66; RESP 18; TEMP 36.7; O2SAT 100
== END 2023-04-15 09:18 | disposition home or self-care (01) ==
PROVIDERS: Emergency Provider Nurse Practitioner Family; PCP Nurse Practitioner Family
DX: S50.12XA Contusion of left forearm, initial encounter (principal); S50.02XA Contusion of left elbow, initial encounter; W19.XXXA Unspecified fall, initial encounter
CPT/HCPCS: 73080; 73090; 99204; 99212; G0463

== ENCOUNTER 2023-07-27 14:56 | Emergency (ER) | payer OTHER, SELFPAY ==
[2023-07-27 15:10] VITALS: BP 136/67; PULSE 78; RESP 18; TEMP 36.6; O2SAT 97; BMI 19.3
--- NOTE | 2023-07-27 15:38 | PC.NURSE ---
Upon examination done by both JL Chaidez and Eli. Her left foot is significantly colder then the right. Her pedal pulse on the left is very weak compared to the right.
--- NOTE | 2023-07-27 15:42 | PC.NURSE ---
Pt arrived to ED room 6 from [facility]
--- NOTE | 2023-07-27 15:42 | PC.NURSE ---
Dr. Singh at BS for pt eval
--- NOTE | 2023-07-27 15:43 | EXP.UTC ---
Discharge Plan Disposition Patient Disposition: Still a Patient Condition: Good Prescriptions Prescriptions: No Action aspirin [Aspir-81] 81 MG tablet,delayed release (DR/EC) 81 mg PO DAILY sertraline 25 MG tablet 25 mg PO DAILY midodrine 5 mg tablet 5 mg PO DAILY Referrals Follow up/Referrals: Precious Lopez APRN [Primary Care Provider] - See instructions Clinical Impressions Clinical Impression: Discoloration of skin of toe Discharge ED Provider: Maria Esther Singh [facility] General Chief complaint: Extremity Problem,Nontraumatic Stated complaint: left foot pain, no accident Mode of Arrival: Ambulatory Source of Information: Patient Limitations: No Limitations Time Seen by Provider: 07/27/23 15:41 Description of Symptoms (Recalled from Triage Doc. by RN): Pt stated that her left foot on the outside of foot by the pinky toe is turned purple. She denies any accident or hitting the foot. She denies any pain except around the ankle when touching. HEENT Symptoms (Recalled from RN notes): No Resp Symptoms (Recalled from RN notes): No Skin Symptoms (Recalled from RN notes): No MS Symptoms (Recalled from RN notes): Yes Functional Status (Recalled from RN notes): n/a History of Present Illness Provider Complaint: 63 yr old female presents for purple left foot/toe. Pt stated that her left foot on the outside of foot by the pinky toe is turned purple, first it tingled and then turned purple. She denies any accident or hitting the foot. She denies any pain except around the ankle when touching. Related Data Home Medications Medication Instructions Recorded Confirmed aspirin 81 mg tablet,delayed 81 mg PO DAILY HEART HEALTH 06/01/18 07/27/23 release (Aspir-) sertraline 25 mg tablet 25 mg PO DAILY Depression 06/01/18 07/27/23 midodrine 5 mg tablet 5 mg PO DAILY 07/27/23 07/27/23 Allergies Allergy/AdvReac Type Severity Reaction Status Date / Time codeine [CODEINE] Allergy Unknown Verified 07/27/23 15:38 Penicillins [PENICILLINS] Allergy Unknown Verified 07/27/23 15:38 Worker's Comp Is this a Worker's Comp case?: No [facility] Disclaimer: The information contained in this section may have been updated after the patient was seen, as this information can be updated by other users. Social History , [employer]) Smoking Status: Never smoker alcohol intake: never current occupational status: other Travel in the last 8 weeks: None household members: other housing: house current occupational exposures/hazards: No ROS Obtained: Yes All systems reviewed & no additional complaints except as documented Constitutional Constitutional: Reports system reviewed and no additional complaints, except as documented and Reports as per HPI Eyes Eyes: Reports system reviewed and no additional complaints, except as documented ENT Ears, Nose, Mouth, and Throat: Reports system reviewed and no additional complaints, except as documented Cardiovascular Cardiovascular: Reports system reviewed and no additional complaints, except as documented Respiratory Respiratory: Reports system reviewed and no additional complaints, except as documented Gastrointestinal Gastrointestingal: Reports system reviewed and no additional complaints, except as documented Musculoskeletal Musculoskeletal: Reports system reviewed and no additional complaints, except as documented Integumentary/Breasts Skin/Breast: Reports system reviewed and no additional complaints, except as documented, Reports as per HPI, Reports unusual bruising and Reports other Neurologic Neurologic: Reports system reviewed and no additional complaints, except as documented Endocrine Endocrine: Reports system reviewed and no additional complaints, except as documented Allergic/Immunologic Allergic/Immunologic: Reports system reviewed and no additional complaints, except as documented Physical Exam Genera
[2023-07-27 15:49] VITALS: BP 149/74; PULSE 78; RESP 16; TEMP 36.6; O2SAT 100; BMI 19.3
--- NOTE | 2023-07-27 15:50 | PC.NURSE ---
DR TOVAR AT BEDSIDE WITH US
--- NOTE | 2023-07-27 16:10 | XR_ITS ---
PROCEDURE INFORMATION: Exam: XR Left Foot Exam date and time: 07/27/2023 4:11 PM Age: 63 years old Clinical indication: Pain; Foot; Left; Additional info: Bruising 3-5 metatarsal TECHNIQUE: Imaging protocol: Radiologic exam of the left foot. Views: 3 or more views. COMPARISON: No relevant prior studies available. FINDINGS: Bones/joints: Normal. No joint disease. Soft tissues: Normal. IMPRESSION: No acute findings.
--- NOTE | 2023-07-27 16:11 | HMH.EDGENADL ---
Discharge Plan Disposition Patient Disposition: Still a Patient Condition: Good Prescriptions Prescriptions: No Action aspirin [Aspir-81] 81 MG tablet,delayed release (DR/EC) 81 mg PO DAILY sertraline 25 MG tablet 25 mg PO DAILY midodrine 5 mg tablet 5 mg PO DAILY Referrals Follow up/Referrals: Precious Lopez APRN [Primary Care Provider] - See instructions Activity Restrictions/Add. Instructions Additional Instructions/Restrictions: As discussed there is no clinical evidence of any acute peripheral artery disease. Return with any changes in sensation or motor function of your left lower extremity or other concerns. Otherwise you may discuss this further with your vascular surgeon when you see them. Clinical Impressions Clinical Impression: Superficial bruising of foot Discharge ED Provider: Maria Esther Singh General Adult HPI General Chief complaint: Extremity Problem,Nontraumatic Stated complaint: left foot pain, no accident Time Seen by Provider: 07/27/23 15:41 Mode of Arrival: Ambulatory Source of Information: Patient Limitations: No Limitations Description of Symptoms (Recalled from ER Triage Doc. by RN): Pt stated that her left foot on the outside of foot by the pinky toe is turned purple. She denies any accident or hitting the foot. She denies any pain except around the ankle when touching. History of Present Illness HPI narrative: Patient is a 63-year-old female presenting today with ecchymosis on the dorsal aspect of her left foot coming from the urgent treatment clinic for further evaluation. States that 2 nights ago she felt some paresthesias in her left third fourth and fifth digit this was preceded by some ecchymosis on the dorsal aspect of her foot the sensation changes have gone back to normal and she has no motor abnormalities. She takes a daily aspirin has no history of any arterial vascular disease or any other significant medical problems. She does have follow-up with a vascular surgeon to be evaluated for varicose abnormality on her right lower extremity but no history of any arterial or peripheral artery disease. No trauma that she is aware of as well. Related Data Home Medications Medication Instructions Recorded Confirmed aspirin 81 mg tablet,delayed 81 mg PO DAILY HEART HEALTH 06/01/18 07/27/23 release (Aspir-) sertraline 25 mg tablet 25 mg PO DAILY Depression 06/01/18 07/27/23 midodrine 5 mg tablet 5 mg PO DAILY 07/27/23 07/27/23 Allergies Allergy/AdvReac Type Severity Reaction Status Date / Time codeine [CODEINE] Allergy Unknown Verified 07/27/23 15:38 Penicillins [PENICILLINS] Allergy Unknown Verified 07/27/23 15:38 [facility] Disclaimer: The information contained in this section may have been updated after the patient was seen, as this information can be updated by other users. Social History , [employer]) Smoking Status: Never smoker alcohol intake: never current occupational status: other Travel in the last 8 weeks: None household members: other housing: house current occupational exposures/hazards: No ROS Obtained: Yes All systems reviewed & no additional complaints except as documented Physical Exam General General appearance: alert and in no apparent distress Respiratory Respiratory exam: Present normal lung sounds bilaterally Cardiovascular Cardiovascular exam: Present other (2+ femoral, popliteal and PT pulses bilaterally dorsalis pedis pulses unable to be felt bilaterally) Expanded Lower Extremity Exam Left: Top foot image: 1. ecchymosis and ttp Neurological Exam Neurological exam: Present alert Medical Decision Making Jared Inquiry Pt receiving controlled substance: No Vital Signs: 07/27/23 15:10 07/27/23 15:49 Temperature 97.9 F 97.9 F Temperature Source Oral Oral Pulse Rate [Right Radial] 78 78 Respiratory Rate 18 16 Blood Pressure [Righ
[2023-07-27 16:30] VITALS: BP 137/76; PULSE 70; RESP 18; TEMP 36.7; O2SAT 97
== END 2023-07-27 16:31 | disposition home or self-care (01) ==
LOC: UTC 15:00 → ER 15:40
PROVIDERS: Emergency Provider Student in an Organized Health Care Education/Training Program; PCP Nurse Practitioner Family
DX: S90.32XA Contusion of left foot, initial encounter (principal); Z79.82 Long term (current) use of aspirin; X58.XXXA Exposure to other specified factors, initial encounter
CPT/HCPCS: 73630; 99283

== ENCOUNTER 2024-04-01 10:00 | Outpatient (RCR) | payer OTHER, SELFPAY ==
--- NOTE | 2024-03-06 10:08 | HMH.PTOPEV ---
PT Outpatient Evaluation Rehab PT Outpatient Evaluation Start: 03/06/24 07:50 Freq: Status: Active Protocol: Document 03/06/24 08:43 PHORALLY (Rec: 03/06/24 10:08 PHORNE [id number]) E-signed By Stefano Navarro, PT Outpatient Therapy Subjective History Subjective History This is the initial PT eval for Jo Ann Bagley, 64 yowf who presents with c/o increase neck pain and dizziness x ~ 1 mo. She reports mild symptoms of neck pain, then I painted a big privacy fence and my neck has been worse ever since . She also reports increased dizziness since her neck pain became worse. Her dizziness is worse when her neck pain is increased, but it also occurs when she turns her head to the L side per her report. She has PMH of hypotension and anxiety. New diagnosis of cancer in past 12 No months? Chief Complaint Other Symptom Description Intermittent,Activity Dependent Level of pain today (0-10) 2 Pain scale - at its worst (0-10) 5 Cervical Eval Palpation Cervical Muscles R Cervical Paraspinal,L Cervical Paraspinal,R Upper Trapezius,L Upper Trapezius Cervical/Thoracic Palpation Findings Tenderness Flexibility Deficits Upper Trapezius Muscle Length (R) Mild Tightness,(L) Mild Tightness Levaetor Scapulae Muscle Length (R) Mild Tightness,(L) Mild Tightness AROM Cervical Spine Extension Active Range of WNL Motion (degrees) Cervical Spine Flexion Active Range of WNL Motion (degrees) Cervical Spine Right Lateral Flexion WNL Active Range of Motion (degrees) Cervical Spine Left Lateral Flexion WNL Active Range of Motion (degrees) Cervical Spine Right Rotation Active WNL Range of Motion (degrees) Cervical Spine Left Rotation Active WNL Range of Motion (degrees) MMT Bilateral Deltoid (C5) 5 Normal Biceps Brachii Strength Grade 5 Normal Wrist Extension Strength Grade 5 Normal Triceps Brachii Strength Grade 5 Normal Wrist Flexion Strength Grade 5 Normal Extensor Pollicis Longus Strength Grade 5 Normal Finger Abduction Strength Grade 5 Normal Special Test C-Spine Foraminal Compression (Spurling) Negative Left,Negative Right Test C-Spine Foraminal Distraction Test Negative C-Spine Compression Test Negative Left,Negative Right Balance Eval Oculomotor Gaze Oculomotor Gaze Nml: Vergence Smooth Pursuit Saccades VOR Cancellation Cover/Uncover Cross Cover Miscellaneous Dx PT Eval Objective Objective Pt shows no nystagmus and no c /o dizziness reproduction with any occulomotor testing. Pt does not describe a sensation of vertigo, I don;t feel anything spinning, just dizzy, with her symptoms when they occur. She ADAMANTLY refuses to undergo Yudelka-Hallpike testing this date as just the thought of laying supine increases her anxiety. They told me at the doctor's office that this would be terrible and I just can't do it today. Currently unable to rule out BPPV as unable to test due to pt severe anxiety. Outpatient Therapy Assessment Impairments Problems/Impairmments Palpation Tenderness,Impaired Range of Motion,Impaired Self Care/Self Management Prognosis Rehab Potential Good Comment Signs and symptoms most consistent with cervicogenic dizziness related to neck muscle spasms, but pt adamantly refused Arthur-Hallpike testing and, therefore, unable to rule out BPPV at this time. Clinical Impression Consistent with Diagnosis Yes Consistent with not likely BPPV Short Term Goals Number of Weeks 2 Decreased Palpation Tenderness Yes: 1/4 B UT Decrease Subjective C/O Pain Yes: 3/10 at worst in c-spine [employer] Goals Number of Weeks 4 Decreased Palpation Tenderness Yes: 0/4 B UT Improve Ability For Household Care Yes: without dizziness Decrease Subjective C/O Pain Yes: 0/10 c-spine Patient to be Ind w/ HEP Yes Outpatient Therapy Plan of Care Treatment Plan May Include Therapeutic Exercise Including Home Yes Exercise Program Manual Therapy Techniques Yes Neuromuscular Re-education Yes Therapeutic Activities to Return to Yes Previous Functional/Work Level ADL/Self Care Education Yes Thermal Modalities Yes Electrical Stimulation Yes Ultrasound/Phonophoresis Yes Massage Yes Eval/Re-Eval Yes Frequency Times per week 1-2 Duration Number of Weeks 3-4 Addendums This patient is a candidate for social No or vocational rehab? Patient/Guardian verbally acknowledges Yes understanding of treatment program and consents to further treatment? Patient/Guardian verbally acknowledges Yes understanding of diagnosis, prognosis and goals for treatment? Eval Complexity PT Charges 66255 - High Complexity Shoulder/Elbow Eval Shoulder Objective Measurements Elbow Objective Measurements PHYSICIAN CERTIFICATION: I certify the specified therapy services for Jo Ann D Kevyn are required, authorized, and reviewed every 30 days.
== END 2024-04-01 10:05 | disposition home or self-care (01) ==
LOC: PT 10:00
PROVIDERS: Visit Provider Nurse Practitioner Family
DX: H81.12 Benign paroxysmal vertigo, left ear (principal)
CPT/HCPCS: 97110; 97163

== ENCOUNTER 2024-11-03 10:03 | Outpatient (CLI) | payer OTHER, SELFPAY ==
--- NOTE | 2024-11-03 10:09 | XR_ITS ---
FINAL REPORT CLINICAL HISTORY: PAIN FINDINGS: LEFT SHOULDER 3 views of the left shoulder were obtained. There is no acute fracture or dislocation. Visualized joint spaces are normally aligned. Soft tissues are unremarkable. IMPRESSION: No acute bony abnormality. Reviewed, Interpreted and Dictated by Seun Payne MD Transcribed by Hattie Fleming Authenticated and . [facility]
== END 2024-11-03 23:59 | disposition home or self-care (01) ==
LOC: RAD 10:05
PROVIDERS: PCP Nurse Practitioner Family; Visit Provider Nurse Practitioner Family
DX: M25.512 Pain in left shoulder (principal)
CPT/HCPCS: 73030

== ENCOUNTER 2024-11-09 08:01 | Emergency (ER) | payer OTHER, SELFPAY ==
[2024-11-09] VITALS (7 sets, daily range): BP systolic 111–147; BP diastolic 64–77; PULSE 59–67; RESP 13–17; TEMP 36.6; O2SAT 92–100; BMI 20.5
--- NOTE | 2024-11-09 08:10 | ECG_ITS ---
APPROVED REPORT Exam: Resting ECG HR:67 bpm ECG Measurements Heart Rate 67 AXES MO 152 P 82 QRSd 76 QRS 73 QT 386 T 77 QTc 401 Conclusion SINUS RHYTHM NORMAL ECG Electronically signed by : EILEEN RILEY, 11/09/2024 12:26:53
--- NOTE | 2024-11-09 08:24 | XR_ITS ---
FINAL REPORT CLINICAL HISTORY: chest pain COMPARISON: 12/30/2021 FINDINGS: 2 views of the chest were obtained. No acute pulmonary density is evident. There is no evidence of effusion or other pleural disease. The mediastinum has a normal appearance. The cardiac silhouette is unremarkable. IMPRESSION: Unremarkable chest exam. Reviewed, Interpreted and Dictated by Florence Black MD Transcribed by Bekah Cutler Authenticated and . [facility]
[2024-11-09 08:29] LABS: Basophils % 1.9 % (0.1-2.0); Eosinophils # 0.1 K/mm3 (0.0-0.4); Eosinophils % 2.9 % (0.1-12.0); Hematocrit 39.8 % (37.0-47.0); Hemoglobin 13.3 g/dL (12.2-16.2); Lymphocytes # 0.6 K/mm3 (0.7-4.5); Lymphocytes % 29.8 % (10-50); Mean Corpuscular HGB Conc 33.4 g/dL (31.8-35.4); Mean Corpuscular Hemoglobin 30.4 pg (27.0-31.2); Mean Corpuscular Volume 91.1 fl (81-99); Mean Platelet Volume 10.1 fl (7.4-10.4); Monocytes # 0.2 K/mm3 (0.1-1.0); Monocytes % 11.5 % (1.7-9.3); Neutrophils # 1.1 K/mm3 (1.8-7.8); Neutrophils % 53.9 % (37.0-80.0); Platelet Count 242 K/mm3 (142-424); Red Blood Count 4.37 M/mm3 (4.20-5.40); Red Cell Distribution Width 12.6 % (11.5-17.5); White Blood Count 2.1 K/mm3 (4.8-10.8)
[2024-11-09 08:32] LABS: Albumin Level 5.1 g/dl (3.5-5.0); Chloride 102 mmol/L (98-107); Potassium 4.3 mmoL/L (3.5-5.1); Sodium 140 mmol/L (136-145)
[2024-11-09 08:34] LABS: Blood Urea Nitrogen 10 mg/dl (7-17); Estimated Glomerular Filt Rate 56 ml/min (>60); GFR (African American) 68 ML/MIN (>60)
[2024-11-09 08:35] LABS: Alanine Aminotransferase 23 U/L (12-78); Albumin/Globulin Ratio 1.7 (1.1-1.8); Alkaline Phosphatase 79 U/L (38-126); Anion Gap 9.3 mEq/L (5-15); Aspartate Amino Transferase 27 U/L (14-36); Bilirubin,Total 0.8 mg/dl (0.2-1.3); Calcium 10.1 mg/dl (8.4-10.2); Carbon Dioxide 33 mmol/L (22.0-30.0); Glucose 87 mg/dl (74-100); Lipase 54 U/L (23-300); Total Protein,Serum 8.1 g/dl (6.3-8.2)
[2024-11-09] MEDS: BELLADONNA ALKALOIDS 60 ML ML PO (08:35)
--- NOTE | 2024-11-09 08:39 | ED_ITS ---
Discharge Plan Disposition Patient Disposition: Home, Self-Care Condition: Good Prescriptions Prescriptions: New levothyroxine 25 mcg capsule 25 mcg PO DAILY Qty: 30 2RF omeprazole 40 mg capsule,delayed release(DR/EC) 40 mg PO DAILY Qty: 30 2RF No Action calcium carbonate [Calcium 600] 600 mg calcium (1,500 mg) tablet 600 mg PO DAILY PRN (Reason: Acid Reflux) cholecalciferol (vitamin D3) 50 mcg (2,000 unit) capsule 50 mcg PO HS vitamin S02-ltoku acid 1-0.8 mg tablet 1 tab PO HS ascorbic acid (vitamin C) 500 mg capsule 500 mg PO HS Probiotic (B. coagulans) 1 billion cell tablet,chewable 1 cell PO DAILY magnesium 200 mg tablet 200 mg PO HS diphenhydramine HCl [Benadryl] 25 mg capsule 25 mg PO HS PRN (Reason: Sleep) melatonin 10 mg capsule 10 mg PO HS PRN (Reason: Sleep) aspirin [Aspir-81] 81 MG tablet,delayed release (DR/EC) 81 mg PO DAILY sertraline 25 MG tablet 25 mg PO DAILY meloxicam 15 mg tablet 15 mg PO DAILY PRN (Reason: Pain (Scale Score 4-6)) Referrals Follow up/Referrals: Precious Lopez APRN [Primary Care Provider] - See instructions Activity Restrictions/Add. Instructions Additional Instructions/Restrictions: You were evaluated in the emergency department today. At this time, your workup is reassuring. You do have high TSH, which indicates hypothyroidism. For this, I prescribed you levothyroxine at a very small dose. Please follow-up closely with your primary care provider for monitoring of your thyroid hormone. Given that you had significant improvement with GI cocktail and previously were on Prilosec, I have prescribed you omeprazole. Please take this daily. 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 Return to the emergency department for new or worsening symptoms. Clinical Impressions Clinical Impression: Epigastric abdominal pain, Hypothyroidism Stand Alone Forms Stand Alone Forms: Work/School Release Instructions Patient Instructions: DI for Atypical Chest Pain, DI for Hypothyroidism Print Language Print Language: Chinese Discharge ED Provider: Zully Case General Adult HPI General Chief complaint: PAIN Stated complaint: upper abd/ low chest pain Time Seen by Provider: 11/09/24 08:13 Mode of Arrival: Family Vehicle Source of Information: Patient, Spouse and Medical Record Description of Symptoms (Recalled from ER Triage Doc. by RN): Pt c/o epigastric pain that began yesterday and radiates to her back. States she has been having issues with constipation and is on mirlax and usesd a glycerin suppository yesterday. She did have a BM but shortly after she developed the Epigastric pain. She also has had intermittent L arm pain for 2 weeks. SHe saw her PCP office and they completed an EKG, states it was nomal. She does follows Dr. Baumann in [place] for cardiac needs. History of Present Illness HPI narrative: This patient is a 64-year-old female who reports history of chronic bowel issues (primarily constipation) as well as some blood pressure issues for which she was previously on metoprolol and then midodrine, but now off of medications, presenting to the emergency department for evaluation with concern for epigastric pain radiating to her shoulders and down her left arm. Patient states that she has been having issues with constipation has been doing MiraLAX and glycerin suppositories, and shortly after having a bowel movement yesterday she started having significant umbilical and then epigastric pain. It radiated to her back and then her bilateral shoulders. She notes she has been having some pain in her left arm previously, but she attributed that to a traumatic injury from walking into something. She saw her primary care provider for this 11/03/2024, and EKG was reassuring so they agreed that it was likely musculoskeletal. She denies any fevers, vomiting, melena, hematochezia, or other concerns. Related Data Home Medications ?Medication ?Instructions ?Recorded ?Confirmed aspirin 81 mg tablet,delayed 81 mg PO DAILY HEART HEALTH 06/01/18 11/09/24 release (Aspir-) sertraline 25 mg tablet 25 mg PO DAILY Depression 06/01/18 11/09/24 Bacillus coagulans 1 billion cell 1 cell PO DAILY 10/26/24 11/09/24 chewable tablet (Probiotic (B. coagulans)) ascorbic acid (vitamin C) 500 mg 500 mg PO HS 10/26/24 11/09/24 capsule calcium carbonate (Calcium 600) 600 mg PO DAILY PRN Acid Reflux 10/26/24 11/09/24 cholecalciferol (vitamin D3) 50 50 mcg PO HS 10/26/24 11/09/24 mcg (2,000 unit) capsule diphenhydramine HCl 25 mg capsule 25 mg PO HS PRN Sleep 10/26/24 11/09/24 (Benadryl) magnesium 200 mg tablet 200 mg PO HS 10/26/24 11/09/24 melatonin 10 mg capsule 10 mg PO HS PRN Sleep 10/26/24 11/09/24 vitamin B12 1 mg-folic acid 0.8 mg 1 tab PO HS 10/26/24 11/09/24 tablet meloxicam 15 mg tablet 15 mg PO DAILY PRN Pain (Scale 11/09/24 11/09/24 Score 4-6) Previous Rx's ?Medication ?Instructions ?Recorded levothyroxine 25 mcg capsule 25 mcg PO DAILY #30 caps 11/09/24 omeprazole 40 mg capsule,delayed 40 mg PO DAILY #30 caps 11/09/24 release Allergies Allergy/AdvReac Type Severity Reaction Status Date / Time codeine (CODEINE) Allergy Intermediate Rash, Verified 11/09/24 09:01 Itching Penicillins (PENICILLINS) Allergy Unknown Unknown Verified 11/09/24 09:01 allergy reaction [facility] Disclaimer: The information contained in this section may have been updated after the patient was seen, as this information can be updated by other users. Medical History Hx of breast cancer Surgical History Hx of hysterectomy Hx of bilateral breast implants Hx of bilateral mastectomy Social History Smoking Status: Never smoker alcohol intake: never current occupational status: other Travel in the last 8 weeks: None household members: other housing: house current occupational exposures/hazards: No Have you lived/traveled outside [place] in past 30 days?: No Contact w/someone who lives/traveled outside US past 30 days?: No Exposure to someone with infectious disease in past 14 days?: No Do you have a fever (greater than 100.4 F or 38 C)?: No Have you tested positive for COVID-19: No Exposed to someone with COVID-19 in past 14 days?: No Do you have a sore throat?: No Do you have a cough?: No Do you have any weakness?: No Do you have any diarrhea?: No Are you experiencing any unusual bleeding?: No Do you have any muscle aches/pain?: No Do you have any abdominal pain?: Yes Are you experiencing loss of taste or smell?: No Other Medical History Have you received the Flu Vaccine for this season: No Have you received the Pneumonia Vaccine: Yes ROS Obtained: Yes All systems reviewed & no additional complaints except as documented Physical Exam General General appearance: alert and in no apparent distress Head Head exam: atraumatic and normocephalic Eye Eye exam: Present normal appearance, PERRL and EOMI ENT ENT exam: Present normal exam, normal oropharynx, mucous membranes moist and normal external ear exam Neck Neck exam: Present normal inspection, full ROM and trachea midline; Absent tenderness Chest Chest inspection: Present normal inspection and symmetric chest wall rise; Absent tenderness Respiratory Respiratory exam: Present normal lung sounds bilaterally; Absent respiratory distress, wheezes, stridor or accessory muscle use Cardiovascular Cardiovascular exam: Present regular rate and normal rhythm Abdominal Exam Abdominal exam: Present soft and tenderness (Epigastric); Absent distention, guarding, rebound or rigidity Extremities Exam Extremities exam: Present normal inspection, full ROM and normal capillary refill; Absent tenderness or edema Back Exam Back exam: Present normal inspection and full ROM; Absent tenderness Neurological Exam Neurological exam: Present alert, oriented X3, CN II-XII intact and normal gait; Absent motor sensory deficit Psychiatric Psychiatric exam: Present normal affect and normal mood Skin Skin exam: Present warm and dry Medical Decision Making Medical Records Medical records reviewed: Yes I reviewed the patient's medical records. Screening: Per USPSTF and CDC recommendations, given the prevalence of disease in our region, it is our hospital?s policy to screen for HIV and viral Hepatitis for all patients aged 18 and over and those with ongoing risk factors. Jared Inquiry Pt receiving controlled substance: No Vital Signs: 11/09/24 08:04 11/09/24 08:31 11/09/24 09:30 Temperature 97.9 F Temperature Source Oral Pulse Rate 59 L 61 Pulse Rate [Right] 67 Respiratory Rate 16 15 14 Blood Pressure 124/66 119/67 Blood Pressure [Right Arm] 147/77 H Blood Pressure Mean Blood Pressure Mean [Right Arm] 100 Blood Pressure Source Blood Pressure Source [Right Arm] Automatic Cuff 02 Sat by Pulse Oximetry 99 100 100 Oxygen Delivery Method Room Air Room Air Room Air 11/09/24 10:00 11/09/24 10:30 11/09/24 11:00 Temperature Temperature Source Pulse Rate 63 63 62 Pulse Rate [Right] Respiratory Rate 17 13 15 Blood Pressure 127/68 129/73 111/64 Blood Pressure [Right Arm] Blood Pressure Mean 79 Blood Pressure Mean [Right Arm] Blood Pressure Source Blood Pressure Source [Right Arm] 02 Sat by Pulse Oximetry 92 L 99 96 Oxygen Delivery Method Room Air Room Air 11/09/24 11:15 Temperature 97.9 F Temperature Source Oral Pulse Rate 62 Pulse Rate [Right] Respiratory Rate 14 Blood Pressure 111/64 Blood Pressure [Right Arm] Blood Pressure Mean Blood Pressure Mean [Right Arm] Blood Pressure Source Automatic Cuff Blood Pressure Source [Right Arm] 02 Sat by Pulse Oximetry Oxygen Delivery Method Room Air Lab Data Lab results reviewed: Yes I reviewed the patient's lab results. Lab Results 11/09/24 08:12: WBC 2.1 L, RBC 4.37, Hgb 13.3, Hct 39.8, MCV 91.1, MCH 30.4, MCHC 33.4, RDW 12.6, Plt Count 242, MPV 10.1, Neut % (Auto) 53.9, Lymph % (Auto) 29.8, [place] % (Auto) 11.5 H, Eos % (Auto) 2.9, Baso % (Auto) 1.9, Neut # (Auto) 1.1 L, Lymph # (Auto) 0.6 L, [place] # (Auto) 0.2, Eos # (Auto) 0.1, Baso # (Auto) 0.0, D-Dimer 0.37, Sodium 140, Potassium 4.3, Chloride 102, Carbon Dioxide 33 H, Anion Gap 9.3, BUN 10, Creatinine 1.00, Estimated GFR 56 L, Est GFR ( Amer) 68, Glucose 87, Calcium 10.1, Total Bilirubin 0.8, AST 27, ALT 23, Alkaline Phosphatase 79, Troponin I < 0.01, Total Protein 8.1, Albumin 5.1 H, Globulin 3.0, Albumin/Globulin Ratio 1.7, Lipase 54, TSH 9.19 H, Thyroxine (T4) 8.2, HCV Ab RYLEY w/Rflx PCR Qn Negative, HIV Ag/Ab Combo Qual Negative 11/09/24 10:21: Troponin I < 0.01 11/09/24 08:12 11/09/24 08:12 Orders (Tests/Meds): ED MEDICATIONS Discontinued Medications Generic Name Dose Route Start Last Admin Trade Name Susan PRN Reason Stop Dose Admin Belladonna Alkaloids 60 ml 11/09/24 08:25 11/09/24 08:35 Belladonna Alkaloids 60 Ml Ml PO 11/09/24 08:26 60 ml ONCE ONE Administration ORDERS Category Date Time Status CXR 2 view (NOT portable) [XR chest 2V] Stat Exams 11/09/24 08:24 Completed Complete Blood Count Auto Diff Stat Lab 11/09/24 08:12 Completed Comprehensive Metabolic Panel Stat Lab 11/09/24 08:12 Completed D-Dimer Stat Lab 11/09/24 08:12 Completed HIV Combo Stat Lab 11/09/24 08:12 Completed Hepatitis C Ab Qual. W/ RFX Stat Lab 11/09/24 08:12 Completed Lipase Stat Lab 11/09/24 08:12 Completed T4 (Thyroxine) Stat Lab 11/09/24 08:12 Completed TSH [Thyroid Stimulating Hormone] Stat Lab 11/09/24 08:12 Completed Trop I [Troponin I] Stat Lab 11/09/24 08:12 Completed Troponin I Q3H Lab 11/09/24 10:21 Completed Troponin I Q3H Lab 11/09/24 14:30 Ordered ECG Data Tracing #1: I reviewed this ECG and interpreted as documented below: Normal sinus rhythm with a ventricular rate of [address] changes concerning for STEMI. Normal axis and intervals. ECG initial impression date: 11/09/24 ECG initial impression time: 08:11 Medical Decision Narrative: In summary, this patient is a 64-year-old female presenting to the Emergency Department for evaluation of epigastric pain radiating to her shoulders, back, down her left arm. Differential diagnoses considered include but are not limited to ACS, dysrhythmia, musculoskeletal strain/sprain, gastritis, peptic ulcer disease, esophagitis, cholecystitis, pancreatitis. Ruling out the most morbid conditions drove assessment. It should be noted patient's history includes chronic constipation which is not at goal therapy. This complicates all aspects of care by increasing patient's risk for morbidity. I reviewed patient's past medical records and noted outpatient x-ray obtained 11/03/2024 for the shoulder pain, which was negative for any acute fracture. On exam, the patient is lying in bed in no acute distress with reassuring vitals on cardiac telemetry. She is mildly hypertensive, but heart rate is normal, O2 saturation normal, no increased work of breathing. She has mild epigastric tenderness but no rebound, guarding, rigidity. Workup included CBC, CMP, lipase, troponin, urinalysis, chest x-ray, EKG. She is given oral GI cocktail to assess for symptomatic improvement. EKG obtained is reassuring. I independently interpreted chest x-ray prior to the radiologist read and noted no large focal consolidation concerning for pneumonia, no pneumothorax, no significant cardiomegaly. Please see their read for final interpretation. Labs were obtained that demonstrated reassuring CBC with the exception of leukopenia which appears to have been present on prior lab evaluations. Chemistry is also reassuring with normal kidney function, normal liver enzymes, normal lipase, negative troponin. She does have elevated TSH with a normal T4. She denies any known history of thyroid issues. D-dimer is negative, so I do not feel that PE or aortic dissection is likely. On reassessment, patient had great improvement after administration of GI cocktail. Vitals remain normal on cardiac telemetry. She notes that she was supposed to be on Prilosec but had stopped taking it because she had been feeling well. It is possible she could have some gastritis/esophagitis causing her symptoms. Second troponin was obtained and was also negative. Given this, I feel the patient does not likely have any acute life-threatening pathology as a cause of her chest pain or symptoms. I feel she is appropriate for discharge with prescription for levothyroxine and Prilosec. She was given instructions for close follow-up with primary care, GI, and cardiology. Strict return precautions were given. Critical Care Critical Care Time Critical Care Time: No
[2024-11-09 08:41] LABS: D-Dimer 0.37 ug/mL (0.0-0.5)
[2024-11-09 08:52] LABS: T4 (Thyroxine) 8.2 ug/dl (5.53-11.0)
[2024-11-09 08:57] LABS: Troponin I < 0.01 ng/ml (0.00-0.034)
[2024-11-09 09:06] LABS: Thyroid Stimulating Hormone 9.19 uIU/mL (0.465-4.68)
--- NOTE | 2024-11-09 09:09 | PC.NURSE ---
Rounded on pt, reports epigastric pain is improved. Updated pt and her on lab results.
[2024-11-09 09:40] LABS: HIV Combo NEGATIVE (Negative)
[2024-11-09 09:49] LABS: Hepatitis C Ab Qual. W/ RFX NEGATIVE (Negative)
--- NOTE | 2024-11-09 10:21 | PC.NURSE ---
AARON SENT SECOND TROP TO LAB
[2024-11-09 10:53] LABS: Troponin I < 0.01 ng/ml (0.00-0.034)
== END 2024-11-09 11:20 | disposition home or self-care (01) ==
PROVIDERS: Emergency Provider Emergency Medicine; PCP Nurse Practitioner Family
DX: E03.9 Hypothyroidism, unspecified (principal); R10.13 Epigastric pain; R07.9 Chest pain, unspecified; M79.602 Pain in left arm
CPT/HCPCS: 71046; 80053; 83690; 84436; 84443; 84484; 85025; 85378; 86803; 87389; 93005; 99284

== ENCOUNTER 2024-11-23 13:55 | Outpatient (RCR) | payer OTHER, SELFPAY ==
--- NOTE | 2024-11-23 16:25 | HMH.OTOPEV ---
OT Inpatient Evaluation Rehab OT Outpatient Eval Start: 11/23/24 15:49 Freq: Status: Active Protocol: Document 11/23/24 15:49 TERRYIGNACIO (Rec: 11/23/24 16:07 SHAUN [id number]) E-signed By Lori Castro, OT Outpatient Therapy Subjective History Subjective History 64 year old female referred to skilled OP OT services for L UE shld pain ~ 2 weeks after running into a door. Patient reported that her pain run down her bicep area with increase pain during lifting, pushing or positional. X-ray on 11/03/24 with no findings. Chief Complaint Pain,Weakness Symptom Type Ache Symptoms Aggravated By Physical Activity Prior Functional Limitations None Current Functional Limitations Lifting,Sleeping Symptom Description Constant and Continuous Level of pain today (0-10) 3 Pain scale - at its best (0-10) 3 Pain scale - at its worst (0-10) 3 Shoulder/Elbow Eval Shoulder Objective Measurements Shoulder ROM Left Shoulder Abduction Active Range of 150 Motion (degrees) Shoulder Flexion Active Range of Motion 140 (degrees) Query Text: Shoulder External Rotation Active Range 60 of Motion (degrees) Shoulder Internal Rotation Active Range 70 of Motion (degrees) Shoulder MMT Shoulder Abduction Strength Grade 3 Fair Shoulder Extension Strength Grade 3 Fair Shoulder Flexion Strength Grade 3 Fair Shoulder Horizontal Abduction Strength 3 Fair Grade Shoulder Horizontal Adduction Strength 3 Fair Grade Infraspinatus/Teres Minor Strength Grade 3 Fair Shoulder Internal Rotation Strength 3 Fair Grade Elbow Objective Measurements QuickDASH Activities Please rate your ability to do the following activities in the last week by selecting the number below the appropriate response. 1. Open a tight or new jar. Mild difficulty 2. 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 3. Carry a shopping bag or briefcase. Mild difficulty 4. Wash your back. Mild difficulty 5. Use a knife to cut food. No difficulty 6. Recreational activities in which you Mild difficulty take some force or impact through your arm, shoulder, or hand (e.g., golf, hammering, tennis, etc.). 7. During the past week, to what extent Slightly has your arm, shoulder or hand problem interfered with your normal social activities with family, friends, neighbors or groups? 8. During the past week, were you Slightly limited limited in your work or other regular daily activites as a result of your arm, shoulder or hand problem? 9. Arm, shoulder or hand pain. Moderate 10. Tingling (pins and needles) in your Mild arm, shoulder or hand. 11. During the past week, how much Mild difficulty difficulty have you had sleeping because of the pain in your arm, shoulder or hand? Quick DASH 22 OT Outpatient Assessment Impairments Problems/Impairments Impaired Range of Motion, Impaired Strength,Subjective C /O Pain Prognosis Rehab Potential Good Clinical Impression Consistent with Diagnosis Yes Short Term Goals Number of Weeks 2 Increase Range of Motion Yes: AROM of L UE shld flex: 150; abd: 160; er: 70; Increase Strength Yes: Improve L UE shld strength to 3+ to 4-/5 throughout Decrease Subjective C/O Pain Yes: 2/10 pain at worst Patient to be Ind w/ HEP Yes: AAROM Patient to be Ind w/ Advanced HEP Yes: Strengthening Improve Quick Dash Score Yes: 32 Auto Service Dispatcher Goals Number of Weeks 4 Increase Range of Motion Yes: AROM of L UE shld flex: 160; abd: 170; er: 80; Increase Strength Yes: Improve L UE shld strength to 4-/5 throughout Decrease Subjective C/O Pain Yes: 1/10 pain at worst Patient to be Ind w/ HEP Yes: AROM Patient to be Ind w/ Advanced HEP Yes: Strengthening Improve Quick Dash Score Yes: 28 Outpatient Therapy Plan of Care Treatment Plan May Include Therapeutic Exercise Including Home Yes Exercise Program Manual Therapy Techniques Yes Therapeutic Activities to Return to Yes Previous Functional/Work Level Thermal Modalities Yes Electrical Stimulation Yes Ultrasound/Phonophoresis Yes Iontophoresis Yes Eval/Re-Eval Yes Aquatic Therapy Yes Frequency Times per week 2x/wk Duration Number of Weeks 4 weeks Addendums This patient is a candidate for social No or vocational rehab? Patient/Guardian verbally acknowledges Yes understanding of treatment program and consents to further treatment? Patient/Guardian verbally acknowledges Yes understanding of diagnosis, prognosis and goals for treatment? Eval Complexity OT Charge 62101 - Low Complexity PHYSICIAN CERTIFICATION: I certify the specified therapy services for Jo Ann Bagley are required, authorized, and reviewed every 30 days.
== END 2024-11-23 23:59 | disposition home or self-care (01) ==
LOC: OT 13:55
PROVIDERS: PCP Nurse Practitioner Family; Visit Provider Family Medicine
DX: M25.512 Pain in left shoulder (principal)
CPT/HCPCS: 97165

== ENCOUNTER 2025-03-01 06:25 | Day surgery (SDC) | payer MEDICARE, SELFPAY ==
[2025-03-01 07:15] VITALS: BP 128/73; PULSE 73; RESP 18; TEMP 36.6; O2SAT 100
[2025-03-01] MEDS: LACTATED RINGERS 1000ML 1,000 ML 50 ML IV (07:15)
--- NOTE | 2025-03-01 07:27 | EXP.ANES.CKL ---
[facility] Disclaimer: The information contained in this section may have been updated after the patient was seen, as this information can be updated by other users. Medical History Hx of breast cancer Surgical History Hx of hysterectomy Hx of bilateral breast implants Hx of bilateral mastectomy Family History Other No significant family history Social History Smoking Status: Never smoker alcohol intake: never substance use type: unknown current occupational status: other Travel in the last 8 weeks?: None household members: other housing: house current occupational exposures/hazards: No [facility] Anesthesia Checklist Patient Identification Patient Identification: Arm Band and Verbal (Name & ) Structural Data Admitted From: Home Planned Operative Procedure/s: colonscopy Consent for Planned Operative Procedure(s) Verified: Yes Verified Documents: Surgical Consent and History and Physical NPO Status Verified Time NPO: 00:00 Additional verifications Anesthesia Reactions: No Airway Assessment Mallampati Score:: Class II Dentition: Good Dentition Neurological Assessment Level of Consciousness: Awake, Alert and Appropriate Hx Seizures: No Numbness or tingling in extremities: No Anesthesia Plan Anesthesia Risk discussed: Yes Anesthesia Plan: Verified ASA Class: II Anesthesia Type: MAC
--- NOTE | 2025-03-01 08:16 | EXP.HP ---
History of Present Illness *Admission Date: 03/01/25 *History of present illness: Mrs. Bagley is a 65-year-old female who is here for surveillance/high risk [place] colonoscopy. Her mother had colon cancer in her 80s. Her paternal grandfather had colon cancer in his 70s. Her last colonoscopy was in 2017. The examination is deemed medically necessary for screening/surveillance colonoscopy. The patient has been seen, interviewed and examined prior to the procedure by both myself and the anesthesia provider. [facility] Disclaimer: The information contained in this section may have been updated after the patient was seen, as this information can be updated by other users. Medical History Hx of breast cancer Surgical History Hx of hysterectomy Hx of bilateral breast implants Hx of bilateral mastectomy Family History Other No significant family history Social History (Updated 03/01/25 @ 07:27 by Annette Henson CRNA) Smoking Status: Never smoker alcohol intake: never substance use type: unknown current occupational status: other Travel in the last 8 weeks?: None household members: other housing: house current occupational exposures/hazards: No Have you lived/traveled outside [place] in past 30 days?: No Contact w/someone who lives/traveled outside [place] past 30 days?: No Exposure to someone with infectious disease in past 14 days?: No Do you have a fever (greater than 100.4 F or 38 C)?: No Have you tested positive for COVID-19?: No Exposed to someone with COVID-19 in past 14 days?: No Do you have a sore throat?: No Do you have a cough?: No Do you have any weakness?: No Do you have any diarrhea?: No Are you experiencing any unusual bleeding?: No Do you have any muscle aches/pain?: No Do you have any abdominal pain?: No Are you experiencing loss of taste or smell?: No Other Medical History Have you received the Flu Vaccine for this season: No Have you received the Pneumonia Vaccine: Yes Review of Systems Review of Systems Review of systems (narrative): Negative *Cardiovascular Comments: Negative *Gastrointestinal Comments: Negative *Genitourinary Comments: Negative *Musculoskeletal Comments: Negative *Neurologic Comments: Negative Meds Home Medications and Allergies Home Medications ?Medication ?Instructions ?Recorded ?Confirmed ?Type aspirin 81 mg tablet,delayed 81 mg PO DAILY HEART HEALTH 06/01/18 03/01/25 History release (Aspir-) sertraline 25 mg tablet 25 mg PO DAILY Depression 06/01/18 03/01/25 History Bacillus coagulans 1 billion cell 1 cell PO DAILY 10/26/24 03/01/25 History chewable tablet (Probiotic (B. coagulans)) ascorbic acid (vitamin C) 500 mg 500 mg PO HS 10/26/24 03/01/25 History capsule calcium carbonate (Calcium 600) 600 mg PO DAILY PRN Acid Reflux 10/26/24 03/01/25 History cholecalciferol (vitamin D3) 50 50 mcg PO HS 10/26/24 03/01/25 History mcg (2,000 unit) capsule diphenhydramine HCl 25 mg capsule 25 mg PO HS PRN Sleep 10/26/24 03/01/25 History (Benadryl) magnesium 200 mg tablet 200 mg PO HS 10/26/24 03/01/25 History melatonin 10 mg capsule 10 mg PO HS PRN Sleep 10/26/24 03/01/25 History vitamin B12 1 mg-folic acid 0.8 mg 1 tab PO HS 10/26/24 03/01/25 History tablet levothyroxine 25 mcg capsule 25 mcg PO DAILY #30 caps 11/09/24 03/01/25 Rx meloxicam 15 mg tablet 15 mg PO DAILY PRN Pain (Scale 11/09/24 03/01/25 History Score 4-6) omeprazole 40 mg capsule,delayed 40 mg PO DAILY #30 caps 11/09/24 03/01/25 Rx release sodium,potassium,mag sulfates 17.5 See Rx Instructions PO .COMPLEX 02/15/25 03/01/25 Rx gram-3.13 gram-1.6 gram oral soln #354 mL (Suprep Bowel Prep Kit) New Prescriptions to Start Prescriptions: Allergies Allergy/AdvReac Type Severity Reaction Status Date / Time codeine (CODEINE) Allergy Intermediate Rash, Verified 03/01/25 07:13 Itching Penicillins (PENICILLINS) Allergy Unknown Unknown Verified 03/01/25 07:13 allergy reaction Exam Data for Last 24 hours Vital signs and Labs for Last 24 Hours: Temp Pulse Resp BP Pulse Ox O2 Del Method 97.8 F 73 18 128/73 100 Room Air 03/01/25 07:15 03/01/25 07:15 03/01/25 07:15 03/01/25 07:15 03/01/25 07:15 03/01/25 07:15 *Routine HEENT Exam Head: Present normocephalic Eye: Present EOMI and PERRL ENT: Present mucous membranes moist *Routine Neck Exam Neck: Present supple *Routine Respiratory Exam Respiratory: Present CTA bilaterally *Routine Cardiovascular Exam Cardiovascular: Present RRR *Routine Abdominal Exam Abdominal: Present soft and normoactive bowel sounds; Absent tenderness *Routine Rectal Exam Rectal:: deferred *Routine Genitalia Exam Genitalia:: deferred *Routine Extremities Exam Extremities: Absent cyanosis, clubbing or edema *Routine Skin Exam Skin: Present warm; Absent rash *Routine Neurological Exam Neurological: Present alert and oriented X3 Assessment and Plan *Assessment and plan (1) Screening for malignant neoplasm of colon: Status: Acute Category: Medical Code(s): Z12.11 - Encounter for screening for malignant neoplasm of colon (2) Family history of colon cancer: Status: Acute Category: Medical Code(s): Z80.0 - Family history of malignant neoplasm of digestive organs Plan A/P: 1. Screening for colon cancer (high risk) secondary to family history is the preprocedural diagnosis. Her last colonoscopy was 2016. The patient will be anesthetized/sedated using MAC sedation. The patient has been seen and examined. Cardiac and lung assessment prior to the examination is stable. Proceed with planned screening colonoscopy.
--- NOTE | 2025-03-01 08:18 | HMH.PROCNOTE ---
[facility] Procedure Note Date: 03/01/25 Time: 08:30 Procedure Note:: Colonoscopy Procedure Report: Colonoscopy with cold snare polypectomy Endoscopist: Vinay Collier II, MD Referring physician: Puja Reis PA-C Date of Procedure: March 01, 2025 Equipment: Olympus 190 variable stiffness pediatric colonoscope Sedation: MAC sedation Indication: Mrs. Bagley is a 65-year-old female who is here for follow-up high risk screening/surveillance colonoscopy. Her mother had colon cancer in her 80s. Her paternal grandfather had colon cancer in his 70s. Her last colonoscopy was in 2016 and was normal. She also states that her had colon cancer. The patient does have a long history of constipation predominant irritable bowel syndrome. She does get some bloating and lower abdominal discomfort. The patient reports no rectal bleeding or weight loss. Procedure: Prior to the procedure, a history and physical exam was performed, and patient's medications and allergies were reviewed. The risks, benefits and alternatives of the sedation and procedure were discussed with the patient. All questions were answered and informed consent was obtained. The patient was brought to the procedure room. Patient identification and proposed procedure were verified by the physician and the nurse. The patient was placed in a left lateral decubitus position and the scope was passed under direct vision. Throughout the procedure, the patient's blood pressure, pulse, and oxygen saturations were monitored continuously. The colonoscopy was accomplished without difficulty. The patient tolerated the procedure well. Findings: On digital rectal examination there was normal rectal tone. There were no external hemorrhoids. The colonoscope was introduced through the anal canal to the rectum and advanced to the cecum. The ileocecal valve and appendiceal orifice were identified. The scope was advanced a short distance into the ileum which appeared grossly normal. The scope was then withdrawn into the colon. There was a single 3 to 4 mm polyp in the descending colon removed via cold snare polypectomy. The remaining cecum, ascending, transverse, descending, sigmoid and rectum were grossly normal. There were no other mucosal abnormalities identified. Upon retroflexion within the rectum there were grade 1-2 internal hemorrhoids. The preparation was excellent throughout with [place] Preparation Score of 9. The cecal time was 12 minutes. Impression: 1. Diminutive 3 to 4 mm descending colon polyp Plan: I will follow-up the polyp histology and recommend repeat surveillance colonoscopy again in 5 years. We will discuss additional treatment options for her IBS constipation.
[2025-03-01 08:35] VITALS: BP 105/49; PULSE 72; RESP 16; TEMP 36.2; O2SAT 99
[2025-03-01 08:45] VITALS: BP 99/58; PULSE 66; RESP 16; O2SAT 98
[2025-03-01 08:55] VITALS: BP 112/61; PULSE 65; RESP 18; O2SAT 98
[2025-03-01 09:05] VITALS: BP 135/82; PULSE 69; RESP 18; O2SAT 100
[2025-03-01 09:25] VITALS: BP 135/74; PULSE 63; RESP 18; TEMP 36.2; O2SAT 100
== END 2025-03-01 09:25 | disposition home or self-care (01) ==
PROVIDERS: PCP Physician Assistant; Visit Provider Internal Medicine Gastroenterology
PROC: 0DJD8ZZ Inspection of Lower Intestinal Tract, Via Natural or Artificial Opening Endoscopic (ICD-10-PCS; CPT 45378; principal; 2025-03-01 08:00)
DX: Z12.11 Encounter for screening for malignant neoplasm of colon (principal); Z80.0 Family history of malignant neoplasm of digestive organs; D12.4 Benign neoplasm of descending colon; K64.1 Second degree hemorrhoids; K58.1 Irritable bowel syndrome with constipation; F32.A Depression, unspecified; Z79.82 Long term (current) use of aspirin; Z79.899 Other long term (current) drug therapy; Z79.890 Hormone replacement therapy; Z88.5 Allergy status to narcotic agent; Z88.0 Allergy status to penicillin
CPT/HCPCS: 45385; 88305; J2003; J2704; J7120